=== PATIENT | female | born 1970 | race Caucasian/White ===

== ENCOUNTER 2020-10-29 13:08 | Outpatient (REF) | payer OTHER, SELFPAY ==
[2020-10-29 13:55] LABS: MANUAL DIFF FLAG NO
[2020-10-29 14:03] LABS: Basophils Percent Auto 0.4 % (0-2); Eosinophils Absolute Auto 0.1 X10*3/uL (0.0-0.4); Eosinophils Percent Auto 1.5 % (0-4); Hematocrit 39.9 % (37-47); Hemoglobin 12.5 g/dl (12.0-16.0); Imm Gran Abs Auto 0.01 X10*3/uL (0.00-0.03); Imm Gran Pct Auto 0.1 % (0.0-0.4); Lymphocytes Percent Auto 29.2 % (20-40); Mean Corpuscular HGB Conc 31.3 g/dl (31.0-35.0); Mean Corpuscular Hemoglobin 26.7 pg (27.0-33.0); Mean Corpuscular Volume 85.1 fL (80-98); Mean Platelet Volume 10.6 fL (9.4-12.3); Monocytes Absolute Auto 0.3 X10*3/uL (0.1-1.2); Monocytes Percent Auto 4.6 % (2-11); Neutrophils Absolute Auto 4.3 X10*3/uL (2.0-8.3); Neutrophils Percent Auto 64.2 % (45-73); Platelet Count 151 X10*3/uL (160-400); Red Blood Count 4.69 X10*6/uL (4.20-5.50); Red Cell Distribution Width 17.1 % (11.0-16.0); White Blood Count 6.7 X10*3/uL (4.8-10.8)
[2020-10-29 14:23] LABS: Alanine Aminotransferase 27 U/L (0-31); Albumin Level 4.2 g/dL (3.5-5.0); Alkaline Phosphatase 116 U/L (39-117); Anion Gap 15 (12-20); Aspartate Amino Transferase 35 U/L (5-31); Bilirubin Total 0.2 mg/dL (0.0-1.0); Blood Urea Nitrogen 7 mg/dL (9-16); Calcium 9.4 mg/dL (8.4-10.2); Carbon Dioxide 24 mmol/L (22-29); Chloride 105 mmol/L (96-108); Estimated Glomerular Filt Rate > 60; Glucose Random 102 mg/dL (60-115); Potassium 4.6 mmol/L (3.3-5.1); Sodium 139 mmol/L (135-145); Total Protein 7.8 g/dL (6.5-8.0)
== END 2020-10-29 13:09 | disposition home or self-care (01) ==
LOC: HO.HMGCLDS 13:08
PROVIDERS: PCP Internal Medicine; Visit Provider Internal Medicine
DX: Z01.818 Encounter for other preprocedural examination (principal); R00.0 Tachycardia, unspecified; R94.31 Abnormal electrocardiogram [ECG] [EKG]; R06.02 Shortness of breath; B35.4 Tinea corporis; K21.9 Gastro-esophageal reflux disease without esophagitis
CPT/HCPCS: 36415; 80053; 85025

== ENCOUNTER 2023-02-22 14:33 | Emergency (ER) | payer OTHER, SELFPAY ==
--- NOTE | ~2023-02-22 | CT_ITS ---
EXAMINATION: CT HEAD WITHOUT CONTRAST CLINICAL INFORMATION: Auditory and visual hallucinations. COMPARISON: None available. TECHNIQUE: Contiguous axial imaging was performed from the skull base to vertex without intravenous administration of contrast. This CT examination was performed using dose optimization techniques as appropriate, variously including the following: *Automated exposure control *Adjustment of mA and/or kV according to patient size (this includes techniques or standardized protocols for targeted exams where dose is matched to indication/reason for exam; i.e. extremities or head) *Use of iterative reconstruction technique DLP: 695 mGy-cm FINDINGS: The lateral, third and fourth ventricles are normally outlined. The cortical sulci and basal cisterns are normally outlined as well. There is no acute territorial defect, hemorrhage or midline shift. The extra-axial spaces are unremarkable. Calvarium: Intact. Maxillofacial sinuses and mastoids: Clear as visualized. CT/CT head/brain wo IV con IMPRESSION: No acute intracranial pathology.
--- NOTE | 2023-02-22 15:14 | ED_ITS ---
HPI - Psych General Chief Complaint: Psychiatric Symptoms Stated Complaint: Visual & Auditory Hallucinations Time Seen by Provider: 02/22/23 15:45 Source: patient Mode of arrival: ambulatory Limitations: no limitations History of Present Illness HPI Narrative: Patient comes to the emergency room complaining several weeks of visual hallucinations and auditory hallucinations. Patient states that she hears that people are saying her name or calling her. Patient states that she is also seeing people that should not be there. The auditory hallucinations got very bad today, said she heard voices coming through her phone without being on a phone call, patient [place]phone [place]. Patient admits to using marijuana, denies other drug use. Patient states she has history of anxiety, depression, PTSD but has never had hallucinations in the past. Related Data Home Medications Medication Instructions Recorded Confirmed bupropion HCl 300 mg 24 hr tablet, 300 mg PO DAILY 02/22/23 02/22/23 extended release escitalopram oxalate 20 mg tablet 20 mg PO DAILY 02/22/23 02/22/23 gabapentin 800 mg tablet 800 mg PO BID 02/22/23 02/22/23 omeprazole 20 mg capsule,delayed 20 mg PO DAILY 02/22/23 02/22/23 release prazosin 1 mg capsule 1 mg PO QID 02/22/23 02/22/23 Previous Rx's Medication Instructions Recorded Ventolin HFA 90 mcg/actuation 1 puff inhalation QID PRN 03/15/22 aerosol inhaler (albuterol sulfate) shortness of breath or wheezing #8 grams Allergies Allergy/AdvReac Type Severity Reaction Status Date / Time amoxicillin [From Augmentin] Allergy Unknown Rash Verified 08/17/22 06:41 clavulanic acid Allergy Unknown Rash Verified 08/17/22 06:41 [From Augmentin] codeine [CODEINE] Allergy Unknown Vomiting Verified 08/17/22 06:41 erythromycin base Allergy Unknown Unknown Verified 08/17/22 06:41 Codeine Phosphate Allergy Unknown unknown Uncoded 05/06/21 15:59 Codeine Sulfate Allergy Unknown unknown Uncoded 05/06/21 15:59 Review of Systems 2 Review of Systems: Constitutional : No Weight loss, No Fever, No Chills, No Night Sweats, No Fatigue, No Malaise ENT/Mouth : No Hearing loss, No Ear Pain, No Nasal Congestion, No Sinus Pain, No Hoarseness, No sore throat, No Rhinorrhea, No Swallowing Difficulty Eyes: No Eye Pain, No Swelling, No Redness, No Foreign Body, No Discharge, No Vision Changes Cardiovascular : No Chest Pain, No SOB, No Dyspnea on Exertion, No Orthopnea, No Edema, No Palpitations Respiratory : No Cough, No Sputum, No Wheezing, No Smoke Exposure, No Dyspnea Gastrointestinal : No Nausea, No Vomiting, No Diarrhea, No Constipation, No abdominal Pain, No Hematochezia, No Melena Genitourinary : no irregular bleeding, No Dysuria, No Urinary Frequency, No Hematuria, No Urinary Incontinence, No Urgency, No Flank Pain, No Urinary Flow Changes, No Hesitancy Musculoskeletal : No joint pain, No Myalgias, No Joint Swelling Skin : No Skin Lesions, No rash Neuro : No Weakness, No Numbness, No Paresthesias, No Loss of Consciousness, No Dizziness, No Headache Psych : No Anxiety/Panic, No Depression, denies SI or HI, admits to auditory and visual hallucinations for several weeks Heme/Lymph: No Bruising, No Bleeding,No Lymphadenopathy Endocrine : No Polyuria, No Polydipsia, No Temperature Intolerance [facility] Past Medical History Medical History (Updated 02/22/23 @ 19:29 by Keeley Julio MD) Anxiety and depression Marijuana use, continuous Asthma, moderate persistent Chronic hepatitis C Family History Family History Other Mental health disorder Substance use disorder Social History Social History Housing: Apartment Alcohol intake: former Year quit: 2006 Patient Tobacco Use Status: Former Tobacco user Tobacco use type: Cigarette Cigarettes Per Day: 2 Smoked in Last 30 Days: Yes e-Cigarette/Vaping Use: Never Used Use of substances other than those prescribed or required for medical reasons: Yes Substance Use Type: Other Advance Directives: No Advance Directives Information Provided: No Current occupational status: employed Cognitive needs: No Hearing needs: No Vision needs: Yes Physical Exam 2 Vital Signs: Vital Signs: Last Vital Signs Temp 98.4 F 02/22/23 16:00 Pulse 61 02/22/23 19:22 Resp 17 02/22/23 19:22 BP 129/70 02/22/23 19:22 Pulse Ox 96 02/22/23 19:22 O2 Del Method Room Air 02/22/23 19:22 BMI result Body Mass Index 26.9 Const: Other: Appearance: Alert. Oriented X3. No acute distress. Eyes: Pupils equal, round and reactive to light. ENT: Pharynx normal. Neck: Normal inspection. Neck supple. No lymph nodes noted. No crepitus CVS: Normal heart rate and rhythm. Pulses normal. Normal S1 and S2 Respiratory: No respiratory distress. Breath sounds normal. No Wheezing. No rales Abdomen: Soft and nontender. No rigidity. No distention. Skin: Skin warm and dry. Normal skin color. Normal skin turgor. Extremities: No lower extremity edema. No Lacerations. No Rash Neuro: Oriented X 3. No motor deficit. No sensory deficit. Moving all extremities. No slurred speech. CN 2 through 12 grossly intact Psych: calm, cooperative, normal affect, coherent Course Course Course Narrative: This is an RME: Additional HPI, ROS, PE not included below will be deferred to primary provider. This is a [id number], with a hx of PTSD, anxiety, asthma, GERD, marijuana use, presenting to the emergency department with a complaint of auditory and visual hallucinations. Pt states that she saw her brother across the street, and thought she saw her brother drove across the street but states that the brother lives in [place] so that is not possible. She also has been hearing things. She has no hx of auditory or visual hallucinations. She states that she threw her phone away in water cause it was talking to me . She went to [facility] in [place], and was called the next day to set up an appointment. She states that she drinks alcohol, but occasionally. She uses cocaine, heroin, crack. No SI/HI. The voices are never harmful, states that they tell her to sit or move. Plan: Labs, UA, drug screening Reevaluation(s) Reevaluation #1: Patient value aided by the care team and felt to be a safe discharge as she has good follow-up, lives with her father, and will undergo medication adjustment. Time: 22:39 Medications Administered Generic Name Dose Route Start Last Admin Trade Name Freq PRN Reason Stop Dose Admin Gabapentin 800 mg 02/22/23 21:15 02/22/23 21:46 Gabapentin 400 Mg Capsule PO 800 mg BID PATRICK Administration Medical Decision Making Medical Decision Making [facility] Narrative: -my interpretation of labs, hematology and chemistry unremarkable, urine toxicology positive for THC -my interpretation head CT, no intracranial bleed or obvious masses -patient medically cleared to be seen by behavioral health/care team Differential Diagnosis Differential Diagnoses: The differential diagnosis associated with the presentation includes (Polysubstance abuse, EtOH, schizophrenia) Admission/Observation Consideration of admission/observation: Escalation of care including admission/observation considered (Patient will remain under observation until seen by the care team) Lab Data [facility] Lab Attestation statement: I reviewed the patient's lab results. 02/22/23 17:03 02/22/23 17:03 Labs: Lab Results 02/22/23 02/22/23 Range/Units 16:26 17:03 WBC 8.6 (4.8-10.8) X10*3/uL RBC 5.11 (4.20-5.50) X10*6/uL Hgb 14.9 (12.0-16.0) g/dl Hct 45.4 (37.0-47.0) % MCV 88.8 (80.0-98.0) fL MCH 29.2 (27.0-33.0) pg MCHC 32.8 (31.0-35.0) g/dl RDW 14.0 (11.0-16.0) % Plt Count 227 (160-400) X10*3/uL MPV 10.2 (9.4-12.3) fL Immature Gran % (Auto) 0.2 (0.0-0.4) % Neut % (Auto) 46.9 (45-73) % Lymph % (Auto) 46.2 H (20-40) % [place] % (Auto) 5.1 (2-11) % Eos % (Auto) 1.2 (0-4) % Baso % (Auto) 0.4 (0-2) % Lymph # (Auto) 4.0 (1.2-4.9) X10*3/uL [place] # (Auto) 0.4 (0.1-1.2) X10*3/uL Eos # (Auto) 0.1 (0.0-0.4) X10*3/uL Baso # (Auto) 0.0 (0.0-0.2) X10*3/uL Abs Immat Gran (auto) 0.02 (0.00-0.03) X10*3/uL Absolute Neuts (auto) 4.0 (2.0-8.3) x10*3/uL Absolute Nucleated RBC 0.000 (0.0-0.012) X10*3/uL Nucleated RBC % (auto) 0.0 (0.0-0.2) /100WBC Sodium 140 (135-145) mmol/L Potassium 3.8 (3.3-5.1) mmol/L Chloride 104 (96-108) mmol/L Carbon Dioxide 27 (22-29) mmol/L Anion Gap 13 (12-20) BUN 11 (9-16) mg/dL Creatinine 0.81 (0.5-1.4) mg/dL Estim Creat Clear Calc 68.5 Estimated GFR > 60 Random Glucose 79 (60-115) mg/dL Calcium 9.5 (8.4-10.2) mg/dL Total Bilirubin 0.4 (0.0-1.0) mg/dL Direct Bilirubin 0.1 (0.0-0.5) mg/dL AST 23 (5-31) U/L ALT 24 (0-31) U/L Alkaline Phosphatase 98 (39-117) U/L Total Protein 7.6 (6.5-8.0) g/dL Albumin 4.5 (3.5-5.0) g/dL TSH 1.00 (0.32-4.0) uIU/mL Urine Color Yellow Urine Appearance Cloudy Urine pH 6.0 (5.0-9.0) Ur Specific [place] 1.020 (1.005-1.025) Urine Protein Negative (Neg-Trace) mg/dL Urine Glucose (UA) Negative (Negative) mg/dL Urine Ketones Negative (Negative) mg/dL Urine Blood Negative (Negative) Urine Nitrite Negative (Negative) Ur Leukocyte Esterase Trace H (Negative) Urine RBC 0-2 (0-2) /HPF Urine WBC 0-5 (0-5) /HPF Ur Squamous Epith Cells 11-20 (0-2) /HPF Urine Bacteria 1+ (None Seen) Hyaline Casts 0-2 (0-2) /LPF Urine Opiates Screen Not Detected (Not Detect) Urine Fentanyl Screen Not Detected (Not Detect) Ur Barbiturates Screen Not Detected (Not Detect) Ur Phencyclidine Scrn Not Detected (Not Detect) Ur Amphetamines Screen Not Detected (Not Detect) U Benzodiazepines Scrn Not Detected (Not Detect) Urine Cocaine Screen Not Detected (Not Detect) U Marijuana (THC) Screen POSITIVE H (Not Detect) Ethyl Alcohol < 10 mg/dL Independent Interpretation I performed an independent interpretation of an: CT Scan Radiology Impression Discussion of test interpretation with radiology: I have reviewed the radiologist's reading. Radiologist Impression: FINDINGS: The lateral, third and fourth ventricles are normally outlined. The cortical sulci and basal cisterns are normally outlined as well. There is no acute territorial defect, hemorrhage or midline shift. The extra-axial spaces are unremarkable. Calvarium: Intact. Maxillofacial sinuses and mastoids: Clear as visualized. CT/CT head/brain wo IV con IMPRESSION: No acute intracranial pathology. Critical Care Time Critical Care Time Critical Care Time: Yes Total Critical Care Time: 60 Attestation: I have personally provided critical care time. Time includes review of lab data, radiology results, discussion with consultants, and monitoring for potential decompensation. Intervention performed as documented. Discharge Plan Discharge Clinical Impression: Hallucinations Patient Disposition: Home, Self-Care Instructions: Psychiatric Hallucinations (ED) Additional Instructions: 1. Resume all home medications as prescribed. 2. Please follow-up with your therapist and psychiatrist in the morning for medication adjustment. Return to the ER for any worsening symptoms. Prescriptions: No Action albuterol sulfate [Ventolin HFA] 90 mcg/actuation HFA aerosol inhaler 1 puff inhalation QID PRN (Reason: shortness of breath or wheezing) Qty: 8 0RF gabapentin 800 mg tablet 800 mg PO BID omeprazole 20 mg capsule,delayed release(DR/EC) 20 mg PO DAILY escitalopram oxalate 20 mg tablet 20 mg PO DAILY bupropion HCl 300 mg tablet extended release 24 hr 300 mg PO DAILY prazosin 1 mg capsule 1 mg PO QID Referrals: Erwin Redmond MD [Primary Care Provider] - Interventions: [place]-Suicide Risk Severity Scale Last Done: 02/22/23 17:09
[2023-02-22 15:15] VITALS: BP 127/90; PULSE 85; RESP 18; TEMP 36.7; O2SAT 98; BMI 26.9
[2023-02-22 16:00] VITALS: BP 116/77; PULSE 61; RESP 16; TEMP 36.9; O2SAT 98
--- NOTE | 2023-02-22 17:02 | PC.NURSE ---
pt a&ox3. respirations even and unlabored. lung sounds clear bilaterally, denies chest pain and shortness of breath. pt abdomen soft non tender to touch, denies nausea vomiting and diarrhea. pt reports hearing voices and seeing things for the past 4 weeks. pt reports her vision is distorted and reports seeing her brother who is not there. pt reports that she is hearing good and bad voices. pt reports the bad voice is saying stupid pt reports the word stupid makes her her upset. pt did not state what the good voices were saying. pt denies si/hi and states the voices are not telling her to harm herself or others. pt calm and corporative at this time. pt changed over and has a 1:1 sitter at this time.
[2023-02-22 17:07] LABS: MANUAL DIFF FLAG NO
[2023-02-22 17:09] LABS: Basophils Percent Auto 0.4 % (0-2); Eosinophils Absolute Auto 0.1 X10*3/uL (0.0-0.4); Eosinophils Percent Auto 1.2 % (0-4); Hematocrit 45.4 % (37.0-47.0); Hemoglobin 14.9 g/dl (12.0-16.0); Imm Gran Abs Auto 0.02 X10*3/uL (0.00-0.03); Imm Gran Pct Auto 0.2 % (0.0-0.4); Lymphocytes Percent Auto 46.2 % (20-40); Mean Corpuscular HGB Conc 32.8 g/dl (31.0-35.0); Mean Corpuscular Hemoglobin 29.2 pg (27.0-33.0); Mean Corpuscular Volume 88.8 fL (80.0-98.0); Mean Platelet Volume 10.2 fL (9.4-12.3); Monocytes Absolute Auto 0.4 X10*3/uL (0.1-1.2); Monocytes Percent Auto 5.1 % (2-11); Neutrophils Percent Auto 46.9 % (45-73); Platelet Count 227 X10*3/uL (160-400); Red Blood Count 5.11 X10*6/uL (4.20-5.50); White Blood Count 8.6 X10*3/uL (4.8-10.8)
[2023-02-22 17:10] LABS: Appearance Urine Cloudy; Color Urine Yellow; Glucose Urine UA Negative (Negative); Leukocyte Esterase Urine Trace (Negative); Nitrite Urine Negative (Negative); UMIC TRIGGER UACC YES; Urine Blood Negative (Negative); Urine Ketones Negative (Negative); Urine Protein Negative (Neg-Trace)
--- NOTE | 2023-02-22 17:14 | PC.NURSE ---
pt reports being a previous user of opioids. pt currently on methadone and reports last dosing this morning.
[2023-02-22 17:16] LABS: Amphetamine Screen Urine Not Detected (Not Detect); Barbiturates, Urine Not Detected (Not Detect); Benzodiazepines Screen Urine Not Detected (Not Detect); Cannabinoid Screen Urine POSITIVE (Not Detect); Cocaine Screen Urine Not Detected (Not Detect); Fentanyl, urine Not Detected (Not Detect); Opiate Screen Urine Not Detected (Not Detect); Phencyclidine Screen Urine Not Detected (Not Detect)
[2023-02-22 17:25] LABS: Bacteria Urine 1+ (None Seen); Hyaline Casts Urine 0-2 /LPF (0-2); RBC Urine 0-2 /HPF (0-2); WBC Urine 0-5 /HPF (0-5)
[2023-02-22 17:28] LABS: Alanine Aminotransferase 24 U/L (0-31); Albumin Level 4.5 g/dL (3.5-5.0); Alkaline Phosphatase 98 U/L (39-117); Anion Gap 13 (12-20); Aspartate Amino Transferase 23 U/L (5-31); Bilirubin Direct 0.1 mg/dL (0.0-0.5); Bilirubin Total 0.4 mg/dL (0.0-1.0); Blood Urea Nitrogen 11 mg/dL (9-16); Calcium 9.5 mg/dL (8.4-10.2); Carbon Dioxide 27 mmol/L (22-29); Chloride 104 mmol/L (96-108); Creatinine Clr Calc Pharmacy 68.5; Estimated Glomerular Filt Rate > 60; Ethanol < 10 mg/dL; Glucose Random 79 mg/dL (60-115); Potassium 3.8 mmol/L (3.3-5.1); Sodium 140 mmol/L (135-145); Total Protein 7.6 g/dL (6.5-8.0)
[2023-02-22 19:22] VITALS: BP 129/70; PULSE 61; RESP 17; O2SAT 96
--- NOTE | 2023-02-22 21:06 | PHA.MEDREC ---
Pharmacy Consult ? Medication Reconciliation Pharmacy has reviewed the medication reconciliation completed by Boom.
[2023-02-22] MEDS: Gabapentin 400 MG CAPSULE 800 MG PO (21:46)
== END 2023-02-22 22:54 | disposition home or self-care (01) ==
PROVIDERS: Physician Assistant Medical; Emergency Provider Emergency Medicine; PCP Internal Medicine
DX: R44.0 Auditory hallucinations (principal); R44.1 Visual hallucinations; F41.8 Other specified anxiety disorders; F99 Mental disorder, not otherwise specified; F43.10 Post-traumatic stress disorder, unspecified; B18.2 Chronic viral hepatitis C; J45.909 Unspecified asthma, uncomplicated; F12.90 Cannabis use, unspecified, uncomplicated; Z87.891 Personal history of nicotine dependence; Z79.899 Other long term (current) drug therapy
CPT/HCPCS: 36415; 70450; 80048; 80076; 80307; 81001; 84443; 85025; 99284; 99285; S9485

== ENCOUNTER 2023-04-19 07:46 | Outpatient (REF) | payer OTHER, SELFPAY ==
--- NOTE | ~2023-04-19 | XR_ITS ---
EXAMINATION: XR SHOULDER, RIGHT CLINICAL INFORMATION: Right shoulder pain COMPARISON: Right shoulder x-ray on 03/30/2023 at [facility] TECHNIQUE: Single tangential view of the right shoulder. FINDINGS: BONES: Bony structures are intact. There is no focal bone destruction or periosteal reaction seen. JOINTS: Alignment of joints is normal. SOFT TISSUE: Soft tissue is normal. No radiopaque foreign body or abnormal air collection is seen. XR/XR shoulder RT 1V IMPRESSION: 1. Normal tangential view x-rays of right shoulder. No fracture or dislocation or signs of osteomyelitis are found. Follow-up MRI is recommended if symptoms persist. If MRI is not feasible, a CT scan could be considered.
== END 2023-04-19 07:47 | disposition home or self-care (01) ==
LOC: HO.HOSX 07:46
PROVIDERS: Visit Provider Orthopaedic Surgery
DX: M25.511 Pain in right shoulder (principal)
CPT/HCPCS: 73020; 99202

== ENCOUNTER 2023-04-19 11:35 | Outpatient (AMB) | payer OTHER, SELFPAY ==
[2023-04-19 11:49] VITALS: BMI 26.8
--- NOTE | 2023-04-19 11:49 | A.OFFVIS_ITS ---
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 The patient states that she injured her shoulder approximately 1 year ago while lifting heavy object. Since that time she has had difficulty lifting her right hand above shoulder height. She has had injections in the past which gave her minimal relief. She has also done physical therapy for 12 weeks over the last 6 months which aggravated her pain. She has tried Tylenol, ibuprofen and Robaxin which gave her minimal relief. The patient reports difficulty lifting her right hand above shoulder height. Allergies amoxicillin [From Augmentin] Allergy (Unknown, Verified 04/19/23 12:08) Rash clavulanic acid [From Augmentin] Allergy (Unknown, Verified 04/19/23 12:08) Rash codeine [CODEINE] Allergy (Unknown, Verified 04/19/23 12:08) Vomiting erythromycin base Allergy (Unknown, Verified 04/19/23 12:08) Unknown Codeine Phosphate Allergy (Unknown, Uncoded 04/19/23 12:08) unknown Codeine Sulfate Allergy (Unknown, Uncoded 04/19/23 12:08) unknown [facility] Medical History (Updated 04/19/23 @ 07:46 by Bradley Mijares MD) Anxiety and depression Marijuana use, continuous Asthma, moderate persistent Chronic hepatitis C Family History Other Mental health disorder Substance use disorder Social History (Updated 04/19/23 @ 11:55 by Mary Rivera [facility] Housing: Apartment Alcohol intake: former Year quit: 2006 Patient Tobacco Use Status: Former Tobacco user Tobacco use type: Cigarette Cigarettes Per Day: 2 e-Cigarette/Vaping Use: Never Used Substance Use Type: Other Current occupational status: employed 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, 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 Cognitive needs: No Hearing needs: No Vision needs: Yes Physical Exam Vital Signs: BMI result Body Mass Index 26.8 Const Other: Well-nourished well-developed very friendly female awake alert and oriented x3 in no acute distress Extrem Other: Bilateral upper extremity examination shows good capillary refill, no skin lesions noted, normal sensation light touch Right shoulder examination shows decreased range of motion when compared to her left shoulder, 4+ out of 5 strength with supraspinatus testing, positive impingement signs, tenderness over her acromioclavicular joint, no instability Results Reviewed Results Reviewed: X-rays of the patient's right shoulder show severe acromioclavicular joint narrowing, a type 2 acromion, no acute bony abnormalities Assessment & Plan Assessment & Plan (1) Right shoulder pain: Code(s): M25.511 - Pain in right shoulder Plan: Ms. Rodriguez presents with right shoulder pain and weakness due to impingement syndrome, acromioclavicular joint arthritis and possible rotator cuff tearing. Thus, I will send the patient for an MRI of her right shoulder to further evaluate the status of her rotator cuff tendons. I will see her back once the MRI is completed to discuss the findings and treatment options. Feel free to call me at any time should questions regarding her orthopedic management arise. Thank you very much for asking me to see this very friendly patient. I spent 22 minutes in reviewing the patient's records and imaging studies, seeing the patient and documenting in the medical record. Orders: Orders MR shoulder RT wo con Today M25.511 - Pain in right shoulder Coding Level of Care Code New Pt Level 2 (64000) Diagnoses Right shoulder pain M25.511
== END 2023-04-19 12:28 | disposition home or self-care (01) ==
LOC: HO.HOS 11:35
PROVIDERS: PCP Internal Medicine; Visit Provider Orthopaedic Surgery
DX: M25.511 Pain in right shoulder (principal)
CPT/HCPCS: 99202

== ENCOUNTER 2023-05-23 18:00 | Outpatient (REF) | payer OTHER, SELFPAY ==
--- NOTE | ~2023-05-23 | MR_ITS ---
EXAMINATION: MR SHOULDER WITHOUT CONTRAST, RIGHT CLINICAL INFORMATION: Right shoulder pain. COMPARISON: Right shoulder radiographs dated 04/19/2023. TECHNIQUE: MRI of the shoulder without contrast was performed on a high-field scanner. FINDINGS: ROTATOR CUFF: Complete, full-thickness tears of the supraspinatus and infraspinatus tendons with the torn tendon fibers retracted to the glenohumeral articulation. Overall tearing measures up to 4.4 x 4.1 cm (AP by ML). Prominent infraspinatus and more mild supraspinatus muscle strains. Mild subscapularis tendinosis. No muscle atrophy or fatty infiltration. BICEPS: Intact. CORACOACROMIAL ARCH: The undersurface of the acromion is flat with subacromial spurring. Mild acromioclavicular osteoarthritis. LABRUM/CAPSULE: No labral tear. Intact inferior joint capsule. GLENOHUMERAL JOINT/MARROW: Degenerative cystic change within the greater tuberosity with mild marrow edema. Grossly intact articular cartilage. Moderate joint effusion with mild synovitis. MR/MR shoulder RT wo con IMPRESSION: 1. Complete, full-thickness tears of the supraspinatus and infraspinatus tendons with the torn tendon fibers retracted to the glenohumeral articulation. Prominent infraspinatus and more mild supraspinatus muscle strains. Mild subscapularis tendinosis. 2. Mild acromioclavicular osteoarthritis with subacromial spurring. 3. Moderate glenohumeral joint effusion with mild synovitis.
== END 2023-05-23 18:01 | disposition home or self-care (01) ==
LOC: HO.MRI 18:00
PROVIDERS: PCP Internal Medicine; Visit Provider Orthopaedic Surgery
DX: M25.511 Pain in right shoulder (principal)
CPT/HCPCS: 73221

== ENCOUNTER 2023-06-17 12:06 | Outpatient (AMB) | payer OTHER, SELFPAY ==
--- NOTE | 2023-06-17 12:07 | MHC.OFFVIS ---
Intake Intake Visit Reasons: OV-Right Shoulder-discuss surgery Intake Note: Kirstie is a 52 year old 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 female who presents today to discuss surgical intervention of her right shoulder. She was last seen with Dr. Mijares who referred her to [place]. Allergies amoxicillin [From Augmentin] Allergy (Unknown, Verified 04/19/23 12:08) Rash clavulanic acid [From Augmentin] Allergy (Unknown, Verified 04/19/23 12:08) Rash codeine [CODEINE] Allergy (Unknown, Verified 04/19/23 12:08) Vomiting erythromycin base Allergy (Unknown, Verified 04/19/23 12:08) Unknown Codeine Phosphate Allergy (Unknown, Uncoded 04/19/23 12:08) unknown Codeine Sulfate Allergy (Unknown, Uncoded 04/19/23 12:08) unknown HPI OV-Right Shoulder-discuss surgery HPI Details Kirstie is a 52 year old woman who presents for an MRI review of her right shoulder pain. She complains of pain with daily activity, along with limited ROM. She says she cannot lift her hand above shoulder height at times, and she has difficulty with lifting objects as her arm feels weak. She reports injuring her shoulder ~one year ago aftger lifting. She found no relief from NSAIDs or injections, and PT made her pain worse. She would like to discuss surgery. [facility] Medical History (Updated 06/19/23 @ 09:30 by Juan David Sanchez MD) Anxiety and depression Marijuana use, continuous Asthma, moderate persistent Chronic hepatitis C Family History Other Mental health disorder Substance use disorder Social History (Updated 04/19/23 @ 11:55 by Mary Rivera [facility]) Housing: Apartment Alcohol intake: former Year quit: 2006 Patient Tobacco Use Status: Former Tobacco user Tobacco use type: Cigarette Cigarettes Per Day: 2 e-Cigarette/Vaping Use: Never Used Substance Use Type: Other Current occupational status: employed 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, 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 Cognitive needs: No Hearing needs: No Vision needs: Yes Review of Systems Const All systems reviewed & are unremarkable except as noted in HPI and below Physical Exam Const General: no acute distress, alert and awake Orientation/consciousness: patient oriented x3 HEENT Head: Yes normocephalic and Yes atraumatic Eyes EOM: EOMs intact bilaterally Resp Effort & Inspection: normal respiratory effort and able to speak in complete sentences Cardio Jugular venous distension: no JVD Skin General skin exam: turgor normal Rashes: no rashes Neuro General: patient oriented x3 Extrem Other: 30/90 (+recruitment), 120, L5 4/5 ec neg lag neg drop arm/HB Neg lift off Psych Appearance: grossly normal Affect: normal affect Attitude: cooperative Results Reviewed Results Reviewed: 1. Complete, full-thickness tears of the supraspinatus and infraspinatus tendons with the torn tendon fibers retracted to the glenohumeral articulation. Prominent infraspinatus and more mild supraspinatus muscle strains. Mild subscapularis tendinosis. 2. Mild acromioclavicular osteoarthritis with subacromial spurring. 3. Moderate glenohumeral joint effusion with mild synovitis. Assessment & Plan Assessment & Plan (1) Rotator cuff tear, right: Code(s): M75.101 - Unspecified rotator cuff tear or rupture of right shoulder, not specified as traumatic Plan: This is a 52 yo F with a full thickness and retracted tear of the supraspinatus on the right shoulder. The infra and subscap are intact. I recommend surgery. I discussed with her the MRI findings which are coincerning. I explained that with the extent of retraction that primary repair may not be possible. I discussed the possible use of a bioinductive graft but we agreed that if it is unrepairable I will not reconstruct the capsule and that we will discuss other interventions at that time. She is young and I think primary repair is possible. I explained the surgery and the risks, benefits and alternatives including, but not limited to, stiffness, pain, infection, weakness, need for further surgery and extended recovery. I answered all her questions. Plan Scribed for Juan David Sanchez MD by Nicolas Chavez, medical imaging technician, on 06/17/23 at 12:21 PM, EST. Coding Level of Care Code Est Pt Level 4 (77417) Diagnoses Rotator cuff tear, right M75.101
== END 2023-06-17 13:02 | disposition home or self-care (01) ==
PROVIDERS: PCP Internal Medicine; Visit Provider Orthopaedic Surgery
DX: M75.101 Unspecified rotator cuff tear or rupture of right shoulder, not specified as traumatic (principal)
CPT/HCPCS: 99214

== ENCOUNTER → 2023-06-17 12:06 | Outpatient (BNVA) | payer OTHER, SELFPAY | PROVIDERS: PCP Internal Medicine; Visit Provider Orthopaedic Surgery | DX: M75.101 Unspecified rotator cuff tear or rupture of right shoulder, not specified as traumatic (principal) | CPT/HCPCS: 99212 ==

== ENCOUNTER 2023-07-05 07:29 | Day surgery (SDC) | payer OTHER, SELFPAY ==
[2023-07-01 07:42] VITALS: BMI 36.0
[2023-07-05] VITALS (9 sets, daily range): BP systolic 104–120; BP diastolic 35–77; PULSE 67–86; RESP 15–18; TEMP 36.6–37; O2SAT 93–97; BMI 31.1
[2023-07-05 09:12] LABS: UPreg QC Valid YES; Urine Pregnancy NEGATIVE (NEGATIVE)
--- NOTE | 2023-07-05 09:39 | HO.ANESPROP2 ---
HPI - Anesthesia Eval Consult details Narrative: 52 F p/f rotator cuff repair IVDU hx heroine; off since 2019; now on methadone Well controlled asthma PMFSH Active Problems Active Problems: All Active Problems (Updated 06/19/23 @ 09:30 by Juan David Sanchez MD) Rotator cuff tear, right (Acute) Right shoulder pain (Acute) Chronic hepatitis C (Acute) Asthma, moderate persistent (Acute) Marijuana use, continuous (Acute) Psychiatric illness (Acute) Allergic rhinitis (Acute) Obesity due to excess calories (Acute) Intermittent asthma (Acute) Tobacco use disorder (Acute) Tinea corporis (Acute) Chronic GERD (Acute) Shortness of breath (Acute) Pre-op evaluation (Acute) Tachycardia (Acute) Abnormal EKG (Acute) Elevated alpha fetoprotein (Acute) Past Medical History Medical History Anxiety and depression Marijuana use, continuous Asthma, moderate persistent Chronic hepatitis C Family History Family History Other Mental health disorder Substance use disorder Family history of problems with anesthesia: No Surgical History History of Problems with Anesthesia: No Social History Social History Housing: Apartment Alcohol intake: former Year quit: 2006 Patient Tobacco Use Status: Current everyday Tobacco user Tobacco use type: Cigarette Cigarettes Per Day: 3 e-Cigarette/Vaping Use: Never Used Substance Use Type: Other Substance Use Frequency: Daily Have you been hit, kicked, punched, or otherwise hurt by someone within the past year? 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 Cognitive needs: No Hearing needs: No Vision needs: Yes Meds Allergies Allergy/AdvReac Type Severity Reaction Status Date / Time amoxicillin [From Augmentin] Allergy Unknown Rash Verified 04/19/23 12:08 clavulanic acid Allergy Unknown Rash Verified 04/19/23 12:08 [From Augmentin] codeine [CODEINE] Allergy Unknown Vomiting Verified 04/19/23 12:08 erythromycin base Allergy Unknown Unknown Verified 04/19/23 12:08 Codeine Phosphate Allergy Unknown unknown Uncoded 04/19/23 12:08 Codeine Sulfate Allergy Unknown unknown Uncoded 04/19/23 12:08 Home Medications Medication Instructions Recorded Confirmed Last Taken Type bupropion HCl 300 mg 24 hr tablet, 300 mg PO DAILY 02/22/23 02/22/23 Unknown History extended release escitalopram oxalate 20 mg tablet 20 mg PO DAILY 02/22/23 02/22/23 Unknown History gabapentin 800 mg tablet 800 mg PO BID 02/22/23 02/22/23 Unknown History omeprazole 20 mg capsule,delayed 20 mg PO DAILY 02/22/23 02/22/23 Unknown History release prazosin 1 mg capsule 1 mg PO QID 02/22/23 02/22/23 Unknown History aripiprazole 5 mg tablet 5 mg PO DAILY PRN 04/19/23 Unknown History melatonin 5 mg tablet 5 mg PO BEDTIME 04/19/23 Unknown History Exam Height,Weight and Vital Signs: Height 5 ft 2 in Weight 170 lb 0.009 oz Last Vital Signs Temp 97.9 F 07/05/23 08:21 Pulse 67 07/05/23 08:21 Resp 18 07/05/23 08:21 BP 104/68 07/05/23 08:21 Pulse Ox 94 07/05/23 08:21 O2 Del Method Room Air 07/05/23 08:21 Pertinent Lab Results Pertinent Lab Results: Laboratory Tests 07/05/23 08:45 Urine Test NEGATIVE Airway Mallampati Class: II TM Dist: >3cm Neck ROM: Full Denture: Lower Loose/Missing/Broken Teeth: Yes Assessment and Plan Assessment Anesthesia Assessment: Anesthesia Plan Discussed and Chart Reviewed Final Anesthetic Review Family History of Problems with Anesthesia: No History of Problems with Anesthesia: No NPO: Yes ASA Class: III Final Preanesthetic Review: No Changes in Pt Med Stat, Meds/Allgs Chart Reviewed, Consent Obtained/Reviewed and Anes Risks/Benef Reviewed Patient Risk: Intermediate Procedure Risk: Low Anesthetic Plan Anesthetic Plan: GA and Regional Block Disposition: Standard PACU
--- NOTE | 2023-07-05 09:44 | MHC.SHP ---
Pre-Procedural Eval Section A - 24 Hr Update-Section A only Date of Service: 07/05/23 Section B - Complete if H&P > 30 days Chief Complaint: Unspecified rotator cuff tear or rupture of right Details of Present Illness: see HPI Relevant Family History (Specify if Yes): No Relevant Social History: None Present Medications: see Short Stay Collaborative assessment Medical History: No relevant PMH History of Previous Operations: No relevant previous surgery Allergies: Allergies Allergy/AdvReac Type Severity Reaction Status Date / Time amoxicillin [From Augmentin] Allergy Unknown Rash Verified 04/19/23 12:08 clavulanic acid Allergy Unknown Rash Verified 04/19/23 12:08 [From Augmentin] codeine [CODEINE] Allergy Unknown Vomiting Verified 04/19/23 12:08 erythromycin base Allergy Unknown Unknown Verified 04/19/23 12:08 Codeine Phosphate Allergy Unknown unknown Uncoded 04/19/23 12:08 Codeine Sulfate Allergy Unknown unknown Uncoded 04/19/23 12:08 Review of Systems Sugical H&P ROS: Negative: Constitution, Cardiovascular, Respiratory, Neurological, Psychiatric, Hem-Onc, Allergic/Immunologic, Gastrointestinal, Genitourinary, Musculoskeletal, Integumentary, Endocrine and Eyes/Ears/Nose/Throat Exam Surgical H&P Exam: Normal: HEENT, Normal: Heart, Normal: Lungs, Normal: Abdomen, Normal: Skin and Normal: Neurological and Not Evaluated: Extremities (weakness with EC testing) Plan Diagnosis/Plan: Unchanged I have reviewed the history and physical and performed a pertinent physical examination on my patient. No changes have occurred unless specified. Right rotator cuff tear Time Spent With Patient Time: Total time managing care of this patient today ____ minutes.
--- NOTE | 2023-07-05 12:07 | P.BOP_ITS ---
Brief Operative Note Date of Service: 07/05/23 Pre-op diagnosis: Right RTC tear Post-op diagnosis: same Procedure: Right RTC repair, SAD and biceps tenotomy Implants: [employer] Helacoil x 4 Surgeon: Juan David Sanchez MD Anesthesia: GETA and regional Was an Janitorial Supervisor used for this Procedure?: No Janitorial Supervisor: Radha Delaney Estimated blood loss (mL): 20 IV fluids (mL): 1,200 Pathology: none sent Condition: stable Disposition: PACU
--- NOTE | 2023-07-06 16:08 | P.OP_ITS ---
Operative Note Operative Note Date of Service: 07/05/23 Narrative: Right RTC tear Post-op diagnosis: same Procedure: Right RTC repair, SAD and biceps tenotomy Implants: [employer]hew Helacoil x 4 Surgeon: Juan David Sanchez MD Anesthesia: GETA and regional Was an Bobbin Disker used for this Procedure?: No Bobbin Disker: Radha Delaney Estimated blood loss (mL): 20 IV fluids (mL): 1,200 Pathology: none sent Condition: stable Disposition: PACU Procedure in detail: Patient was brought to the operating room and placed the the beach chair position. All bony prominences were well padded and the limb was prepped and draped in standard sterile fashion. A time out was called to identify proper site, proper procedure and proper surgeon. IV antibiotics per weight were administered. I began by making a posterolateral stab incision with a 15 blade. A blunt trochar was placed into the glenohumeral joint and I insufflated the joint with saline and a 30 degree arthroscope was placed. I established an outside- in anterior portal just distal to the biceps tendon. I then began my inspection of the glenohumeral joint. There was a large degenerative SLAP tear at the biceps anchor. There were minimal cartilage changes at the inferior glenoid without humeral head changes. There was a full thickness undersurface RTC tear. The subcapularis was intact. I debrided the loose cartilage of the glenoid and the degenerative labral tearing and performed a biceps tenotomy. I then removed the trochar and entered the subacromial space. A direct lateral portal was then established and I performed a bursectomy. The cuff was then examined. There was a full thickness tear of the supraspinatus without retraction. The tear was mobile. I placed two medial row double loaded anchors after using a tap just adjacent to the articular cartilage and then brought the suture limbs ( 8) through the medial cuff. I then debrided the bare area down to bleeding bone and, using a cross bridge configuration, brought 4 limbs to each of two lateral 5.0 anchors. This re-approximated the cuff anatomy anatomically. I performed a 5 mm subacromial decompression with a oval arnulfo. Once I was satisfied with the repair and the decompression final images were captured and I removed all instrumentation. Portals were closed with nylon. Patient was placed in an abduction sling, extubated and brought to the recovery room in stable condition. There were no known complications.
== END 2023-07-05 14:24 | disposition home or self-care (01) ==
LOC: HO.SSS 07:31
PROVIDERS: Anesthesiology; PCP Internal Medicine; Visit Provider Orthopaedic Surgery
PROC: (CPT 29827; principal; 2023-07-05 09:40)
DX: M75.101 Unspecified rotator cuff tear or rupture of right shoulder, not specified as traumatic (principal); M25.411 Effusion, right shoulder; M65.811 Other synovitis and tenosynovitis, right shoulder; J45.40 Moderate persistent asthma, uncomplicated; B18.2 Chronic viral hepatitis C; F41.8 Other specified anxiety disorders; Z88.1 Allergy status to other antibiotic agents; Z88.5 Allergy status to narcotic agent; F12.90 Cannabis use, unspecified, uncomplicated; F17.210 Nicotine dependence, cigarettes, uncomplicated
CPT/HCPCS: 29827; 29826; 29822; 81025; C1713; J0171; J0690; J1100; J2250; J2371; J2405; J2704; J2795; J3010

== ENCOUNTER → 2023-07-05 07:29 | Outpatient (BNV) | payer OTHER, SELFPAY | PROVIDERS: PCP Internal Medicine; Visit Provider Orthopaedic Surgery | DX: S46.011A Strain of muscle(s) and tendon(s) of the rotator cuff of right shoulder, initial encounter (principal); S43.431A Superior glenoid labrum lesion of right shoulder, initial encounter | CPT/HCPCS: 29827 ==

== ENCOUNTER 2023-07-12 12:28 | Outpatient (AMB) | payer OTHER, SELFPAY ==
--- NOTE | 2023-07-12 12:30 | A.OFFVIS_ITS ---
Intake Vital Signs 07/12/23 12:33 Height 5 ft Weight 170 lb BMI 33.2 Handedness Right Intake Visit Reasons: PO-Rt RTC Repair 07/06/23 NE Intake Note: Kirstie is a 52 year old 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 female who presents today for a post op appointment s/p right RTC repair 07/06/23 NE. Patient reports having discomfort, however she has a exercise bike that she tried to use carefully but she felt a sharp pain on her right shoulder. Allergies amoxicillin [From Augmentin] Allergy (Unknown, Verified 07/12/23 12:33) Rash clavulanic acid [From Augmentin] Allergy (Unknown, Verified 07/12/23 12:33) Rash codeine [CODEINE] Allergy (Unknown, Verified 07/12/23 12:33) Vomiting erythromycin base Allergy (Unknown, Verified 07/12/23 12:33) Unknown Codeine Phosphate Allergy (Unknown, Uncoded 04/19/23 12:08) unknown Codeine Sulfate Allergy (Unknown, Uncoded 04/19/23 12:08) unknown HPI PO-Rt RTC Repair 07/06/23 NE HPI Details 52-year-old female who presents in the [facility] today 1 week status post right shoulder rotator cuff repair with SAD and bicep tenotomy, which was performed on 07/05/[address] Sanchez. The patient reports having discomfort in the right shoulder. She states she has an exercise bike that she tried to use carefully, but she felt a sharp pain on the right shoulder. 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 Sutures intact. No surrounding erythema or drainage. No signs of infection. Forward flexion and abduction to 45 degrees. External rotation to neutral. NVI. Assessment & Plan Assessment & Plan (1) Rotator cuff tear, right: Comment: Right rotator cuff repair 07/05/2023 Dr. Juan David Sanchez. Code(s): M75.101 - Unspecified rotator cuff tear or rupture of right shoulder, not specified as traumatic Plan Ms. Rodriguez is a 52-year-old female who presents in the office today 1 week status post right shoulder rotator cuff repair with SAD and bicep tenotomy, which was performed on 07/05/[address] Sanchez. The patient reports having discomfort in the right shoulder. She states she has an exercise bike that she tried to use carefully, but she felt a sharp pain on the right shoulder. Sutures were removed and steri-stripes were applied. The patient was instructed she will remain in the sling at all time until she is 6 weeks. At this time she does not have a physical therapy appointment scheduled. The office has reached out the physical therapy office her to get her scheduled as soon as possible. Follow up will be in 4 weeks, or sooner if needed. Orders: Orders PT Evaluation and Treatment Today M75.101 - Unspecified rotator cuff tear or rupture of right shoulder, not specified as traumatic Patient Instructions: Scribed by Rhonda Gomez director global medical affairs, for Brigette Og PA-C on 07/12/2023 at 12:29 pm, EST. Coding Level of Care Code Global (55267) Diagnoses Rotator cuff tear, right M75.101
[2023-07-12 12:33] VITALS: BMI 33.2
== END 2023-07-12 13:36 | disposition home or self-care (01) ==
PROVIDERS: PCP Internal Medicine; Visit Provider Physician Assistant
DX: M75.101 Unspecified rotator cuff tear or rupture of right shoulder, not specified as traumatic (principal)
CPT/HCPCS: 99024

== ENCOUNTER → 2023-07-12 12:28 | Outpatient (BNVA) | payer OTHER, SELFPAY | PROVIDERS: PCP Internal Medicine; Visit Provider Physician Assistant | DX: Z47.89 Encounter for other orthopedic aftercare (principal); M75.101 Unspecified rotator cuff tear or rupture of right shoulder, not specified as traumatic | CPT/HCPCS: 99212 ==

== ENCOUNTER 2023-07-20 08:46 | Outpatient (AMB) | payer OTHER, SELFPAY ==
--- NOTE | 2023-07-20 08:51 | MHC.PC.OV ---
Vital Signs 07/20/23 08:53 Height 5 ft Weight 175 lb 2 oz BMI 34.2 BP 124/80 Blood Pressure Location Lt brachial Position Sitting Pulse 89 Pulse Source Pulse Oximeter Pulse Oximetry (%) 95 Oxygen Delivery Method Room Air Intake Visit Reasons: PE Allergies amoxicillin [From Augmentin] Allergy (Unknown, Verified 07/20/23 08:53) Rash clavulanic acid [From Augmentin] Allergy (Unknown, Verified 07/20/23 08:53) Rash codeine [CODEINE] Allergy (Unknown, Verified 07/20/23 08:53) Vomiting erythromycin base Allergy (Unknown, Verified 07/20/23 08:53) Unknown Codeine Phosphate Allergy (Unknown, Uncoded 04/19/23 12:08) unknown Codeine Sulfate Allergy (Unknown, Uncoded 04/19/23 12:08) unknown Medication List - Last Reconciled 07/20/23 by Erwin Redmond MD acetaminophen 650 mg (2 x 325 mg) PO Q6H PRN 30 days aripiprazole 5 mg PO DAILY PRN bupropion HCl 300 mg PO DAILY escitalopram oxalate 20 mg PO DAILY gabapentin 800 mg PO BID melatonin 5 mg PO BEDTIME omeprazole 20 mg PO DAILY prazosin 1 mg PO QID Ventolin HFA 90 mcg/actuation (albuterol sulfate) 1 puff inhalation QID PRN 30 days NS Tobacco use date assessed: 07/20/23 Dental Screening Dental Screen Date: 07/20/23 Did you have a dental visit in the last 12 months?: Yes Did you have a dental problem in the last 6 months where you did not have access to dental care?: No Was dental information given to patient?: Patient has dentist HPI PE HPI Details Patient is a 52-year-old female came in today for physical exam Last time she was seen was in 2021 Patient have psychiatric illness with hallucinations auditory, she is on psychiatric medications through Psychiatry Only medication through this office are Omeprazole 20 mg once a day Albuterol inhaler only as needed And nystatin powder for tenia corporis that is usually happens in summer Labs were done February of last year, reviewed Patient agree to have colonoscopy, referral placed Due for mammogram, order placed Pap smear [facility] Patient recently had right shoulder rotator cuff surgery by Dr. 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 1. Little interest or pleasure in doing things: several days 2. Feeling down, depressed, or hopeless: several days 3. Trouble falling or staying asleep, or sleeping too much: more than half the days 4. Feeling tired or having little energy: more than half the days 5. Poor appetite or overeating: more than half the days 6. Feeling bad about yourself - or that you are a failure or have let yourself or your family down: several days 7. Trouble concentrating on things, such as reading the newspaper or watching television: several days 8. Moving or speaking so slowly that other people could have noticed. Or the opposite - being so fidgety or restless that you have been moving around a lot more than usual: not at all 9. Thoughts that you would be better off or of hurting yourself in some way: not at all Total score: 10 Depression Screening Interpretation: Positive Depression Screening Follow-up: Existing condition and In treatment Depression Screening Done: Yes 33514 - PHQ-9 Billing: Yes Source: Developed by Drs. Hossein Hartmann, Agnieszka Valdez, Drake Nolan and colleagues, with an educational shruthi from [employer]. Thrive Questionnaire Date Thrive assessed: 07/20/23 I am a: Patient What is your living situation today?: I have a steady place to live Within the past 12 months, did the food you bought not last and you didn't have the money to get more?: Never true Within the past 12 months, did you worry whether your food would run out before you got money to buy more?: Never true Do you have trouble paying for medicines?: No Do you have trouble getting transportation to medical appointments?: No Do you have trouble paying your heating and electricity bill?: No Do you have trouble taking care of your child, family member or friend?: No Do you have trouble with day-to-day activities such as bathing, preparing meals, shopping, managing finances, etc.?: No Are you currently unemployed and looking for a job?: No Are you interested in more education?: No Please select the resources that you would like help with: None Currently or been in a relationship where the following occur: no concerns reported THRIVE Score: 0 AUDIT C Alcohol Use Questionnaire (AUDIT-C) 1. How often do you have a drink containing alcohol?: Never 3. How often do you have six or more drinks on one occasion?: Never Total Score: 0 Score Reviewed/Action Taken: Yes FREEMAN-7 AMB Questionnaire FREEMAN-7 Date FREEMAN - 7 assessed: 07/20/23 Feeling nervous, anxious, or on edge: 2 = More than half the days Not being able to stop or control worryin = Several days Worrying too much about different things: 1 = Several days Trouble relaxin = Several days Being so restless that it is hard to sit still: 1 = Several days Becoming easily annoyed or irritable: 2 = More than half the days Feeling afraid as if something awful might happen: 1 = Several days Total FREEMAN-7 score (0-4 normal; 5-9 mild; 10-14 moderate; 15-21 severe): 9 Source: Developed by Drs. Hossein Hartmann, Agnieszka Valdez, Drake Nolan and colleagues, with an educational shruthi from [employer]. FREEMAN-7 Assessment Billing FREEMAN-7 Assessment Tool: FREEMAN-7 Assessment 87575 (In treatment) Review of Systems Const Denies chills, Denies fever(s) and Denies headache(s) Eyes Denies blurry vision ENT Denies headache(s), Denies nasal discharge, Denies nasal obstruction, Denies odynophagia and Denies sinus pain Card Denies chest pain at rest and Denies chest pain with activity Resp Denies cough and Denies hemoptysis GI Denies diarrhea, Denies odynophagia, Denies vomiting and Denies hematemesis Reports as per HPI Musc Denies abnormal gait Skin/Breast Reports as per HPI Neuro Denies Neuro-related abnormal movements, Denies Abnormal speech present, Denies abnormal gait, Denies headache(s) and Denies Sensory deficit (Neuro) Psych Denies mood swings and Denies paranoia Endo Reports as per HPI Alan/Lymph Reports as per HPI Aller/Immun Reports as per HPI Physical exam (Primary Care) Vital Signs: Last Vital Signs Pulse 89 07/20/23 08:53 BP 124/80 07/20/23 08:53 Pulse Ox 95 07/20/23 08:53 Oxygen Delivery Method Room Air 07/20/23 08:53 BMI result Body Mass Index 34.2 Tobacco/Smoking Status: Tobacco use Status Tobacco use date assessed 07/20/23 07/20/23 08:58 Patient Tobacco Use Status Current everyday Tobacco 07/20/23 08:51 Tobacco use type Cigarette 07/20/23 08:51 e-Cigarette/Vaping Use Never Used 07/20/23 08:51 PHQ-9: PHQ-9 Score PHQ-9: Total score 10 07/20/23 09:17 Depression Screening Interpretation: Positive Depression Screening Follow-up: Existing condition and In treatment Thrive Assessment: Date of Thrive Assessment Date Thrive assessed 07/20/23 07/20/23 09:05 Currently or been in a relationship where the following occur: no concerns reported Const General: cooperative, comfortable and no acute distress Orientation/consciousness: patient oriented x3 HENMT Head: Yes normocephalic and Yes atraumatic Eyes General: appearance normal, both eyes and all related structures Pupils: Equal, round and reactive pupils present EOM: EOMs intact bilaterally Neck Neck: Yes supple and No lymphadenopathy Thyroid: Thyroid normal Lymphatic: no lymphadenopathy noted Resp Effort & Inspection: normal respiratory effort and able to speak in complete sentences Auscultation: clear to auscultation bilaterally Cardio Heart sounds: S1 normal heart sound present and S2 normal heart sound present GI Palpation (GI): Soft to palpation and nontender Auscultation: normal bowel sounds General: Yes no CVA tenderness Back/Spine/Pelvis Back: no CVA tenderness Skin General skin exam: elasticity normal and turgor normal Neuro General: patient oriented x3 and gait normal Cranial nerves: Yes Equal, round and reactive pupils present Speech: No Abnormal speech present Sensory Exam: No Sensory deficit (Neuro) Coordination: tandem gait normal and Romberg test negative Extrem General: No edema Assessment and Plan Assessment & Plan (1) Encounter for general adult medical examination with abnormal findings: Code(s): Z00.01 - Encounter for general adult medical examination with abnormal findings (2) Major depressive disorder, severe: Code(s): F32.2 - Major depressive disorder, single episode, severe without psychotic features (3) Marijuana dependence: Code(s): F12.20 - Cannabis dependence, uncomplicated (4) Severe anxiety: Code(s): F41.9 - Anxiety disorder, unspecified (5) Auditory hallucinations: Code(s): R44.0 - Auditory hallucinations (6) Intermittent asthma: Code(s): J45.20 - Mild intermittent asthma, uncomplicated Qualifiers: Asthma severity: mild Asthma complication type: uncomplicated Qualified Code(s): J45.20 - Mild intermittent asthma, uncomplicated (7) Obesity due to excess calories: Code(s): E66.09 - Other obesity due to excess calories Qualifiers: Obesity classification: adult class 1 (BMI 30 - 34.9) Serious obesity comorbidity presence: without serious comorbidity Body mass index: BMI 34.0-34.9 Qualified Code(s): E66.09 - Other obesity due to excess calories; Z68.34 - Body mass index [BMI] 34.0-34.9, adult (8) Tinea corporis: Code(s): B35.4 - Tinea corporis (9) Chronic GERD: Code(s): K21.9 - Gastro-esophageal reflux disease without esophagitis (10) Colon cancer screening: Code(s): Z12.11 - Encounter for screening for malignant neoplasm of colon Plan Patient is a 52-year-old female came in today for physical exam Last time she was seen was in 2021 Patient have psychiatric illness with hallucinations auditory, she is on psychiatric medications through Psychiatry Only medication through this office are Omeprazole 20 mg once a day Albuterol inhaler only as needed And nystatin powder for tenia corporis that is usually happens in summer Labs were done February of last year, reviewed Patient agree to have colonoscopy, referral placed Due for mammogram, [facility] Patient recently had right shoulder rotator cuff surgery by Dr. Sanchez Her shoulder is still in sling BMI is elevated need to lose weight Patient also smoke marijuana every day Orders: Orders MM tomosynthesis screening BI Today Z12.31 - Encounter for screening mammogram for malignant neoplasm of breast Referrals Gastroenterology Referral Z12.11 - Encounter for screening for malignant neoplasm of colon Medications: New omeprazole 20 mg PO DAILY 90 caps 1RF Changed From Ventolin HFA 90 mcg/actuation (albuterol sulfate) 1 puff inhalation QID PRN 8 grams 0RF shortness of breath or wheezing NS To Ventolin HFA 90 mcg/actuation (albuterol sulfate) 1 puff inhalation QID PRN 18 grams 2RF shortness of breath or wheezing 30 days NS Refilled nystatin 1 appl topical DAILY 60 grams 2RF 30 days B35.4 - Tinea corporis Coding Level of Care Code Est Pt Prev Care 40-64y(51051) Diagnoses Encounter for general adult medical examination with abnormal findings Z00.01 Major depressive disorder, severe F32.2 Marijuana dependence F12.20 Severe anxiety F41.9 Auditory hallucinations R44.0 Mild intermittent asthma without complication J45.20 Asthma severity: mild Asthma complication type: uncomplicated Class 1 obesity due to excess calories without serious comorbidity with body mass index (BMI) of 34.0 to 34.9 in adult E66.09; Z68.34 Obesity classification: adult class 1 (BMI 30 - 34.9) Serious obesity comorbidity presence: without serious comorbidity Body mass index: BMI 34.0-34.9 Tinea corporis B35.4 Chronic GERD K21.9 Colon cancer screening Z12.11 Additional Codes FREEMAN-7 Assessment Billing - FREEMAN-7 Assessment Tool: FREEMAN-7 Assessment 63834 ([id number])
[2023-07-20 08:53] VITALS: BP 124/80; PULSE 89; O2SAT 95; BMI 34.2
== END 2023-07-20 09:19 | disposition home or self-care (01) ==
PROVIDERS: PCP Internal Medicine; Visit Provider Internal Medicine
DX: Z00.00 Encounter for general adult medical examination without abnormal findings (principal); F32.2 Major depressive disorder, single episode, severe without psychotic features; F12.20 Cannabis dependence, uncomplicated; E66.09 Other obesity due to excess calories; Z68.34 Body mass index [BMI] 34.0-34.9, adult; F41.9 Anxiety disorder, unspecified; R44.0 Auditory hallucinations; J45.20 Mild intermittent asthma, uncomplicated; B35.4 Tinea corporis; K21.9 Gastro-esophageal reflux disease without esophagitis; Z12.11 Encounter for screening for malignant neoplasm of colon; F17.210 Nicotine dependence, cigarettes, uncomplicated
CPT/HCPCS: 99396

== ENCOUNTER 2023-08-09 13:08 | Outpatient (AMB) | payer OTHER, SELFPAY ==
--- NOTE | 2023-08-09 13:10 | A.OFFVIS_ITS ---
Intake Intake Visit Reasons: PO-Rt RTC Repair 07/06/23 NE Intake Note: Kirstie is a 52 year old 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 female who presents today for a post op appointment s/p right RTC repair 07/06/23 NE. Patient reports she is doing better since the surgery. She states that PT is going well, she states that she is very stiff. Allergies amoxicillin [From Augmentin] Allergy (Unknown, Verified 08/09/23 13:12) Rash clavulanic acid [From Augmentin] Allergy (Unknown, Verified 08/09/23 13:12) Rash codeine [CODEINE] Allergy (Unknown, Verified 08/09/23 13:12) Vomiting erythromycin base Allergy (Unknown, Verified 08/09/23 13:12) Unknown Codeine Phosphate Allergy (Unknown, Uncoded 04/19/23 12:08) unknown Codeine Sulfate Allergy (Unknown, Uncoded 04/19/23 12:08) unknown HPI PO-Rt RTC Repair 07/06/23 NE HPI Details 52-year-old 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 female isabelle gonzalez presents in the office today 5 weeks status post right shoulder rotator cuff repair with SAD and bicep tenotomy, which was performed on 07/05/[address] Sanchez. I last saw the patient in the office on 07/12/2023 when she was instructed to remain in the sling and she was referred to work with physical therapy. While in the office today the patient reports she is doing better since the surgery. She has been attending physical therapy and states it is going well. She does reports that she is very stiff. 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 Lacking about 10 degrees of forward flexion and abduction. Able to reach T12. External rotation to 30 degrees. NVI. Assessment & Plan Assessment & Plan (1) S/P right rotator cuff repair: Onset Date: ~07/05/23 Comment: with SAD and bicep tenotomy NE Code(s): Z98.890 - Other specified postprocedural states Plan Ms. Rodriguez is a 52-year-old 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 female who presents in the office today 5 weeks status post right shoulder rotator cuff repair with SAD and bicep tenotomy, which was performed on 07/05/[address] Sanchez. I last saw the patient in the office on 07/12/2023 when she was instructed to remain in the sling and she was referred to work with physical therapy. While in the office today the patient reports she is doing better since the surgery. She has been attending physical therapy and states it is going well. She does reports that she is very stiff. The patient was instructed she is able to discontinue the use of the sling at this time. She will continue to work with physical therapy. Follow up will be in [address] Sanchez, or sooner if needed. Current pain regiment: --Acetaminophen 650 mg PO Q6H PRN (07/05/2023) Patient Instructions: Scribed by Rhonda Gomez medical services assistant, for Brigette Og PA-C on 08/09/2023 at 1:11 pm, EST. Coding Level of Care Code Global (07612) Diagnoses S/P right rotator cuff repair Z98.890
== END 2023-08-09 13:20 | disposition home or self-care (01) ==
PROVIDERS: PCP Internal Medicine; Visit Provider Physician Assistant
DX: Z98.890 Other specified postprocedural states (principal)
CPT/HCPCS: 99024

== ENCOUNTER → 2023-08-09 13:08 | Outpatient (BNVA) | payer OTHER, SELFPAY | PROVIDERS: PCP Internal Medicine; Visit Provider Physician Assistant | DX: Z47.89 Encounter for other orthopedic aftercare (principal); Z98.890 Other specified postprocedural states | CPT/HCPCS: 99212 ==

== ENCOUNTER 2023-09-16 10:33 | Outpatient (AMB) | payer OTHER, SELFPAY ==
--- NOTE | 2023-09-16 10:38 | MHC.OFFVIS ---
Intake Vital Signs 09/16/23 10:40 Height 5 ft 1 in Weight 170 lb BMI 32.1 Handedness Right Intake Visit Reasons: PO-Rt RTC Repair 07/06/23 NE Intake Note: Kirstie is a 52 year old 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 female who presents today for a post op appointment s/p right RTC repair with SAD and bicep tenotomy 07/06/23 NE. Patient reports she is having mild pain and has a clicking sensation in her right shoulder. She is no longer wearing her sling. Allergies amoxicillin [From Augmentin] Allergy (Unknown, Verified 09/16/23 10:41) Rash clavulanic acid [From Augmentin] Allergy (Unknown, Verified 09/16/23 10:41) Rash codeine [CODEINE] Allergy (Unknown, Verified 09/16/23 10:41) Vomiting erythromycin base Allergy (Unknown, Verified 09/16/23 10:41) Unknown Codeine Phosphate Allergy (Unknown, Uncoded 04/19/23 12:08) unknown Codeine Sulfate Allergy (Unknown, Uncoded 04/19/23 12:08) unknown HPI PO-Rt RTC Repair 07/06/23 NE HPI Details Kirstie is a 52 year old 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 female who presents today for a post op appointment s/p right RTC repair with SAD and bicep tenotomy 07/06/23 NE. Patient reports she is having mild pain and has a clicking sensation in her right shoulder. She is no longer wearing her sling. 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 continue HEP. discussed time frame for recovery. f/u 3 months. Plan Follow up with me in 3 months Coding Level of Care Code Global (31408) Diagnoses S/P right rotator cuff repair Z98.890
[2023-09-16 10:40] VITALS: BMI 32.1
== END 2023-09-16 11:05 | disposition home or self-care (01) ==
PROVIDERS: PCP Internal Medicine; Visit Provider Orthopaedic Surgery
DX: Z98.890 Other specified postprocedural states (principal)
CPT/HCPCS: 99024

== ENCOUNTER → 2023-09-16 10:33 | Outpatient (BNVA) | payer OTHER, SELFPAY | PROVIDERS: PCP Internal Medicine; Visit Provider Orthopaedic Surgery | DX: Z98.890 Other specified postprocedural states (principal) | CPT/HCPCS: 99212 ==

== ENCOUNTER 2023-09-28 08:30 | Outpatient (AMB) | payer OTHER, SELFPAY ==
--- NOTE | 2023-09-28 08:33 | MHC.OFFVIS ---
Vital Signs 09/28/23 08:35 Height 5 ft 1 in Weight 189 lb 9.561 oz BMI 35.8 BP 119/79 Blood Pressure Location Lt brachial Position Sitting Pulse 94 Intake Visit Reasons: Colonoscopy Screening Intake Note: Kirstie presents in the office as a colonoscopy screening. CC: She states she is not having any concerns other than GERD. 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 female with past medical history of anxiety, depression, marijuana dependence, rotator cuff tear, chronic hepatitis-C, asthma, on methadone is here today for pre colonoscopy screening.? Patient was sent to us by her PCP.? This is her first colonoscopy screening.? ? Denies any personal or family history of gastrointestinal disease, colon polyps, or cancer.? Denies history of difficulty with sedation or anesthesia in the past.? Negative for history of sleep apnea.? Denies any history of cardiac, renal, pulmonary, or hepatic disease.?? No history of infectious? diseases like hepatitis A, B, HIV or tuberculosis.? Patient is not on any anticoagulation therapy. History of hep C treated in 2019. Patient would like to see if the treatment was successful. States that she has not followed up after the treatment for labs or ultrasound. Chronic acid reflux patient currently is taking omeprazole daily and states that her symptoms are suppressed for the most part. 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 Cognitive needs: No Hearing needs: No Vision needs: Yes Review of Systems Const Denies weight gain and Denies weight loss ENT Reports no additional complaints, Denies dysphagia and Denies odynophagia Card Reports no additional complaints Resp Reports no additional complaints GI Denies abdominal pain, Denies belching, Denies melena, Denies bloating, Denies change in bowel habits, Denies dysphagia, Denies excessive flatus, Denies dyspepsia, Denies heartburn, Denies diarrhea, Denies loose stools, Denies nausea, Denies odynophagia and Denies vomiting Musc Reports no additional complaints Neuro Reports no additional complaints Psych Reports no additional complaints Endo Reports no additional complaints Physical Exam Vital Signs: Last Vital Signs Pulse 94 09/28/23 08:35 BP 119/79 09/28/23 08:35 BMI result Body Mass Index 35.8 Const General: healthy appearing, no acute distress and well developed Nutritional Appearance: well nourished Orientation/consciousness: patient oriented x3 Resp Effort & Inspection: normal respiratory effort, able to speak in complete sentences, no tracheal deviation and symmetric chest movement Auscultation: clear to auscultation bilaterally Cardio Rate: regular rate GI Inspection: Yes normal to inspection and No distended Palpation (GI): Soft to palpation, not firm, nontender and No hepatosplenomegaly present Auscultation: normal bowel sounds General: Yes no CVA tenderness Back/Spine/Pelvis Back: no CVA tenderness Skin General skin exam: elasticity normal, turgor normal and dry skin Neuro General: patient oriented x3 Psych Appearance: grossly normal Mental Status: mental status grossly normal Assessment & Plan Assessment & Plan (1) Colon cancer screening: Code(s): Z12.11 - Encounter for screening for malignant neoplasm of colon Category: Medical (2) Chronic hepatitis C: Comment: Tx start date 11/05/2019, Initial viral load 1,400,000 genotype 1 B, hepatitis-B is negative there is no hepatitis a immune, autoimmune workup shows a very elevated AFP mildly elevated SMA and negative mitochondrial antibodies, HIV screen is negative fibrosis scoring is F3-F4 Ultrasound of the abdomen 09/2019 ULTRASOUND OF THE ABDOMEN 10/2019 IMPRESSION: 1. Increased hepatic parenchymal echogenicity consistent with hepatic steatosis. No focal parenchymal lesion. Liver elastography measurements are consistent with a high risk for clinically significant liver fibrosis (METAVIR Stage F3-F4). 2. No cholelithiasis or ductal dilatation Code(s): B18.2 - Chronic viral hepatitis C Category: Medical (3) Chronic GERD: Code(s): K21.9 - Gastro-esophageal reflux disease without esophagitis Category: Medical Plan Patient denies any cardiac or respiratory symptoms. ?Denies any issues with anesthesia in the past.? Denies any history of sleep apnea.? History of hepatitis C, treated in 2019. Patient never followed up after treatment for re-evaluation and labs. Will send her to check hep C viral load, hepatitis-B surface antibody and hepatitis a IgG to see if she received vaccine in the past.? Not on any anticoagulation therapy.? Patient reports to be on PPI for very long time. History of chronic GERD. Occasionally patient will continue to have acid reflux. She continues to smoke cigarettes less than she used to. Patient will be sent for upper endoscopy to rule out gastritis, esophagitis, Whitlock's. No family or personal history of colon cancer or polyps.? Patient denies melena, hematochezia, unintentional weight loss or ribbon like stools.? Discussed at length the pre-procedure,? prep, diet & medications as well as what to expect prior, during and after the procedure.?? Stressed the importance of good bowel prep. ?Recommended the use of Vaseline or Calmoseptine OTC & baby wipes with bowel movements to promote comfort.? ?Patient verbalizes understanding and agrees to plan of care.? She was given the opportunity to ask questions and all questions answered.? We will see her after the procedure.? Orders: Orders Hepatitis C Viral Load Today Z86.19 - Personal history of other infectious and parasitic diseases Hepatitis B Surface Antibody Today B18.2 - Chronic viral hepatitis C Hepatitis A IgG Today B18.2 - Chronic viral hepatitis C US abdomen comp w elastography Today R79.89 - Other specified abnormal findings of blood chemistry Liver Panel Today R74.01 - Elevation of levels of liver transaminase levels Medications: New bisacodyl (Dulcolax (bisacodyl)) take 4 tabs at noon the day before your colonoscopy 20 mg (4 x 5 mg) PO ONCE 1 day 4 tabs 0RF Z12.11 - Encounter for screening for malignant neoplasm of colon magnesium citrate Drink one bottle at 17:00 and 2nd bottle at 22:00 296 mL PO ONCE 296 mL 1RF Z12.11 - Encounter for screening for malignant neoplasm of colon Coding Level of Care Code New Pt Level 4 (23242) Diagnoses Colon cancer screening Z12.11 Chronic hepatitis C B18.2 Chronic GERD K21.9 Time Spent (min) 45 Comment 30 minutes spent with patient and additional 15 minutes spent reviewing her records
[2023-09-28 08:35] VITALS: BP 119/79; PULSE 94; BMI 35.8
== END 2023-09-28 09:51 | disposition home or self-care (01) ==
PROVIDERS: PCP Internal Medicine; Visit Provider Nurse Practitioner Family
DX: Z12.11 Encounter for screening for malignant neoplasm of colon (principal); B18.2 Chronic viral hepatitis C; K21.9 Gastro-esophageal reflux disease without esophagitis; Z01.818 Encounter for other preprocedural examination
CPT/HCPCS: 99204

== ENCOUNTER → 2023-09-28 08:30 | Outpatient (BNVA) | payer OTHER, SELFPAY | PROVIDERS: PCP Internal Medicine; Visit Provider Nurse Practitioner Family | DX: Z12.11 Encounter for screening for malignant neoplasm of colon (principal); K21.9 Gastro-esophageal reflux disease without esophagitis; B18.2 Chronic viral hepatitis C | CPT/HCPCS: 99202 ==

== ENCOUNTER → 2023-11-02 09:15 | Outpatient (BNV) | payer OTHER, SELFPAY | PROVIDERS: PCP Internal Medicine; Visit Provider Radiology Diagnostic Radiology | DX: Z12.31 Encounter for screening mammogram for malignant neoplasm of breast (principal) | CPT/HCPCS: 77063; 77067 ==

== ENCOUNTER 2023-11-02 09:27 | Outpatient (REF) | payer OTHER, SELFPAY ==
--- NOTE | ~2023-11-02 | MM_ITS ---
EXAMINATION: MM SCREENING DIGITAL BREAST TOMOSYNTHESIS, BILATERAL CLINICAL INFORMATION: Screening. Asymptomatic. Patient is status post left breast benign excision. COMPARISON: Mammography: This study is compared with prior exams dating back to 2013. TECHNIQUE: Digital breast tomosynthesis is performed in both the craniocaudal and mediolateral oblique views along with computer-aided detection (CAD). Synthesized 2D images are generated from the tomosynthesis. FINDINGS: There are scattered areas of fibroglandular density (ACR BI-RADS breast composition Category b). There are no significant masses, abnormal calcifications, or other abnormalities. Benign calcifications and postsurgical changes are present in the left breast. MM/MM tomosynthesis screening BI IMPRESSION: No mammographic evidence of malignancy. ASSESSMENT: BI-RADS BI-RADS 2 - Benign Findings RECOMMENDATION: Routine annual mammography screening. 1 year F/U This examination should not preclude the clinical evaluation of a suspicious palpable abnormality. This patient's information was entered into a reminder system with a target due date for their next mammogram.
== END 2023-11-02 09:28 | disposition home or self-care (01) ==
LOC: HO.MAMMO 09:27
PROVIDERS: PCP Internal Medicine; Visit Provider Internal Medicine
DX: Z12.31 Encounter for screening mammogram for malignant neoplasm of breast (principal)
CPT/HCPCS: 77063; 77067

== ENCOUNTER 2023-11-18 09:15 | Outpatient (REF) | payer OTHER, SELFPAY ==
--- NOTE | ~2023-11-18 | US_ITS ---
EXAMINATION: US COMPLETE ABDOMEN WITH LIVER ELASTOGRAPHY CLINICAL INFORMATION: Abnormal blood chemistry. COMPARISON: 10/09/2019 TECHNIQUE: Real-time imaging of the abdominal viscera. Noninvasive ultrasound liver fibrosis assessment is performed using Buddy ElastPQ point quantification shear wave elastography (2D-SWE) with a C5-2 MHz transducer. Multiple elastography samples are obtained. FINDINGS: PANCREAS: . The visualized pancreatic head and body are normal in appearance. The remainder of the pancreas is obscured from visualization by the overlying bowel gas. ABDOMINAL AORTA: The proximal, middle, and distal aortic segments are normal in caliber. INFERIOR VENA CAVA: Visualized portions are normal. LIVER: . The liver demonstrates normal size and contour but increased echogenicity. No focal lesion or intrahepatic biliary duct dilatation. The right lobe measures 15.6 cm in length. The left lobe measures 13.6 cm in length. Portal flow is towards the liver (hepatopetal). Shear wave liver elastography median stiffness is 2.17 m/s (reference: normal median stiffness is 1.3 m/s or less). Previously this value was 3.31 cm/s. IQR/median stiffness to assess sampling precision is 0.10 (reference: good quality data set is IQR/median stiffness of 0.15 or less). GALLBLADDER: Gallstones are present with the largest measuring 2.9 cm. No evidence of cholecystitis. COMMON BILE DUCT: Normal in caliber measuring 0.2 cm in diameter. RIGHT KIDNEY: . No hydronephrosis. No renal calculi or focal parenchymal lesions. The kidney measures 8.9 cm in maximum dimension. LEFT KIDNEY: . No hydronephrosis. No renal calculi or focal parenchymal lesions. The kidney measures 9.6 cm in maximum dimension. SPLEEN: Normal. The spleen measures 10.5 cm in maximum dimension. FREE FLUID: None. US/US abdomen comp w elastography IMPRESSION: 1. Hepatic steatosis. 2. Liver elastography: Measurements are consistent with compensated advanced chronic liver disease. When compared with prior exam, there is a statistically significant decrease in liver stiffness (decrease at least 10%). REFERENCE: Society of Radiologists in Ultrasound Liver Stiffness Thresholds (2019): LIVER STIFFNESS THRESHOLDS: *Liver Stiffness equal or less than 1.3 m/s: High probability of being normal. *Liver Stiffness less than 1.7 m/s: In the absence of other known clinical signs, rules out compensated advanced chronic liver disease. *Liver Stiffness 1.7-2.1 m/s: Suggestive of compensated advanced chronic liver disease but need further test for confirmation. *Liver Stiffness over 2.1 m/s: Rules in compensated advanced chronic liver disease. *Liver Stiffness over 2.4 m/s: Suggestive of clinically significant portal hypertension. QUALITY OF DATA SET: *IQR/Median value equal or less than 0.15 implies a quality data set. *IQR/Median value over 0.15 implies a poor quality data set. SIGNIFICANT CHANGE FROM PRIOR EXAM: Significant change if liver stiffness measurement is 10% or greater from prior exam. OTHER CONSIDERATIONS: The stage of liver fibrosis may be overestimated in the setting of acute hepatitis, liver inflammation, elevated liver function tests, hepatic vascular congestion, obstructive cholestasis, non-fasting state, and infiltrative diseases such as amyloidosis and lymphoma. In some patients with NAFLD, the liver stiffness thresholds for compensated advanced chronic liver disease may be lower. In causes other than viral hepatitis and NAFLD, liver stiffness thresholds are not well established.
[2023-11-18 11:25] LABS: Alanine Aminotransferase 35 U/L (0-31); Albumin Level 4.4 g/dL (3.5-5.0); Alkaline Phosphatase 79 U/L (39-117); Aspartate Amino Transferase 30 U/L (5-31); Bilirubin Direct 0.2 mg/dL (0.0-0.5); Bilirubin Total 0.4 mg/dL (0.0-1.0); Total Protein 7.6 g/dL (6.5-8.0)
[2023-11-18 11:39] LABS: HBS Num1 4.82 mIU/mL (0-7.99); ~Hepatitis B Surface Antibody NONREACTIVE (Nonreactive)
[2023-11-18 11:40] LABS: Hepatitis A Antibody IgG Nonreactive (Nonreactive); ~Hepatitis A Antibody IgG 0.72 S/CO (0.00-0.99)
[2023-11-20 08:29] LABS: HCV Log PCR <1.18 NOT DETECTED Log IU/mL (NOT DETECTED); HepC Viral Load <15 NOT DETECTED IU/mL (NOT DETECTED)
== END 2023-11-18 09:16 | disposition home or self-care (01) ==
LOC: HO.US 09:15
PROVIDERS: PCP Internal Medicine; Visit Provider Nurse Practitioner Family
DX: R79.89 Other specified abnormal findings of blood chemistry (principal); R74.01 Elevation of levels of liver transaminase levels; B18.2 Chronic viral hepatitis C; Z86.19 Personal history of other infectious and parasitic diseases
CPT/HCPCS: 36415; 76700; 76981; 80076; 86706; 86708; 87522

== ENCOUNTER 2023-11-23 09:00 | Outpatient (RCR) | payer OTHER, SELFPAY ==
--- NOTE | 2023-07-18 09:50 | MHC.PT.EP ---
[facility] [place] Office [place] [facility] [place] Office [address] Heladio Fonseca [address] [phone] F: [phone] F: [phone] F: [phone] F: [phone] Physical Therapy Plan of Care Date of Evaluation: 07/18/23 Date of Surgery: 07/05/2023 Diagnosis: s/p R RTC repair, SAD, biceps tenotomy 07/05/2023 Assessment: Patient is a 52 year old female presenting to PT s/p R RTC repair, SAD, biceps tenotomy 07/05/2023. She presents today with impairments in pain, ROM, strength. 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 Pt expresses assisted goal of returning to PLOF, and is motivated to work towards this in PT. Clinical presentation today is most consistent with signs and sx associated with s/p R RTC repair, SAD, biceps tenotomy 07/05/2023 and pt will benefit from skilled PT 2 week x 20 weeks to address the following problems and impairments noted upon evaluation: pain, ROM, strength. 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 The prescribed treatment plan of care is medically necessary. Co-morbidities of none were identified and taken into considerations of plan of care. Pt was educated on HEP, role of PT, prognosis, POC. Frequency and Duration: The patient will be seen 2 x week x 20 weeks Short Term Goals: Pt will demonstrate compliance with initial HEP in 2 visits. Pt will demonstrate increased R shoulder ER to 45 deg at 45 deg abd in 4 weeks. Pt will demonstrate full PROM in 6 weeks. Snf Goals: Pt will demonstrate full AROM by 12 weeks for improved ability to reach. Pt will demonstrate at least 4-/5 strength in 16 weeks for improved ability to complete ADLs. Pt will demonstrate at least 4/5 strength in 20 weeks for prepare to return to PLOF. Treatment Plan: Modalities to reduce pain, spasms and effusion. Manual therapy to restore motion and function. Therapeutic exercise to improve strength and flexibility. Neuromuscular re-education for posture and balance. Therapeutic activities to return to functional activities of daily living. Electronically signed by: Virginia Hui, PT, DPT, ATC Please sign and return to therapist. Thank you for your referral.
--- NOTE | 2023-11-25 08:30 | MHC.PT.DC ---
[facility] [place] [facility] [place] [facility] [place] [facility] [address] Heladio Fonseca [address] [phone] F: [phone] F: [phone] F: [phone] F: [phone] Physical Therapy Discharge Report Diagnosis: s/p R RTC repair, SAD, biceps tenotomy 07/05/2023 Date of Surgery: 07/05/2023 Date of Evaluation: 07/18/23 Date of Discharge: 11/25/23 Treatments to Date: 27 Cancellations to Date: 10 No Shows to Date: 4 Discharge Status: Discharge Summary: Pt no showed her last PT appointment. Plan was to d/c at this date. Today is also her end date so she will be d/c. Electronically signed by: Virginia Hui, PT, DPT, ATC Please sign and return to therapist. Thank you for your referral.
== END 2023-11-25 08:30 | disposition home or self-care (01) ==
LOC: HO.PTCHIC 09:00
PROVIDERS: PCP Internal Medicine; Visit Provider Physician Assistant
DX: M75.101 Unspecified rotator cuff tear or rupture of right shoulder, not specified as traumatic (principal)
CPT/HCPCS: 97110; 97140; 97161; 97164

== ENCOUNTER 2024-02-03 08:43 | Outpatient (AMB) | payer OTHER, SELFPAY ==
[2024-02-03 08:43] VITALS: BP 118/76; PULSE 88; O2SAT 93; BMI 31.4
--- NOTE | 2024-02-03 08:43 | MHC.PC.OV ---
Vital Signs 02/03/24 08:43 Height 5 ft 1 in Weight 166 lb 6 oz BMI 31.4 BP 118/76 Blood Pressure Location Rt brachial Position Sitting Pulse 88 Pulse Source Pulse Oximeter Pulse Oximetry (%) 93 Oxygen Delivery Method Room Air Intake Visit Reasons: 6 month f/u Allergies amoxicillin [From Augmentin] Allergy (Unknown, Verified 02/03/24 08:43) Rash clavulanic acid [From Augmentin] Allergy (Unknown, Verified 02/03/24 08:43) Rash codeine [CODEINE] Allergy (Unknown, Verified 02/03/24 08:43) Vomiting erythromycin base Allergy (Unknown, Verified 02/03/24 08:43) Unknown Codeine Phosphate Allergy (Unknown, Uncoded 09/28/23 08:36) unknown Codeine Sulfate Allergy (Unknown, Uncoded 09/28/23 08:36) unknown Medication List - Last Reconciled 02/03/24 by Erwin Redmond MD acetaminophen 650 mg (2 x 325 mg) PO Q6H PRN 30 days aripiprazole 5 mg PO DAILY PRN aripiprazole 30 mg PO DAILY baclofen 20 mg PO BID bisacodyl (Dulcolax (bisacodyl)) 20 mg (4 x 5 mg) PO ONCE 1 day bupropion HCl XL 300 mg PO DAILY escitalopram oxalate 20 mg PO DAILY gabapentin 800 mg PO BID hydroxyzine HCl 25 mg PO QID magnesium citrate 296 mL PO ONCE melatonin 5 mg PO BEDTIME methadone 27 mg PO ONCE methocarbamol 500 mg PO TID nystatin 1 appl topical DAILY 30 days omeprazole 20 mg PO DAILY Ventolin HFA 90 mcg/actuation (albuterol sulfate) 1 puff inhalation QID PRN 30 days NS Tobacco use date assessed: 02/03/24 Dental Screening Dental Screen Date: 02/03/24 Did you have a dental visit in the last 12 months?: Yes Did you have a dental problem in the last 6 months where you did not have access to dental care?: No Was dental information given to patient?: Patient has dentist HPI 6 month f/u HPI Details Patient is 53-year-old female This is a follow-up appointment The only medication patient is getting from this office is omeprazole for chronic GERD she is taking it once a day Patient is doing well I would recommend diet-controlled as well Her BMI is elevated need to lose weight Allergic rhinitis stable patient has stop using Flonase. Intermittent asthma stable Tenia corporis stable with nystatin powder groin area She continued to smoke marijuana. Patient have a psychiatric illness and is getting some other medication for that reason through Psychiatry Has physical exam appointment in July [facility] Medical History Anxiety and depression Marijuana use, continuous Asthma, moderate persistent Chronic hepatitis C Family History Other Mental health disorder Substance use disorder Social History Housing: Apartment Alcohol intake: former Year quit: 2006 Patient Tobacco Use Status: Current everyday Tobacco user Tobacco use type: Cigarette Cigarettes Per Day: 3 e-Cigarette/Vaping Use: Never Used Substance Use Type: Other Current occupational status: employed 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 How often do you have a drink containing alcohol?: Never 3. How often do you have six or more drinks on one occasion?: Never Total Score: 0 Score Reviewed/Action Taken: Yes FREEMAN-7 AMB Questionnaire FREEMAN-7 Date FREEMAN - 7 assessed: 07/20/23 Source: Developed by Drs. Hossein Hartmann, Agnieszka Valdez, Drake Nolan and colleagues, with an educational shruthi from [employer]. Review of Systems Const Denies chills and Denies fever(s) ENT Denies epistaxis and Denies nasal discharge Card Denies chest pain Resp Denies chest congestion, Denies cough and Denies hemoptysis GI Denies diarrhea and Denies nausea Skin/Breast Denies rash Neuro Reports no additional complaints Psych Reports no additional complaints Endo Reports no additional complaints Physical exam (Primary Care) Vital Signs: Last Vital Signs Pulse 88 02/03/24 08:43 BP 118/76 02/03/24 08:43 Pulse Ox 93 02/03/24 08:43 Oxygen Delivery Method Room Air 02/03/24 08:43 BMI result Body Mass Index 31.4 Tobacco/Smoking Status: Tobacco use Status Tobacco use date assessed 08/30/24 08/30/24 08:49 Patient Tobacco Use Status Current everyday Tobacco 02/03/24 08:49 Tobacco use type Cigarette 02/03/24 08:49 e-Cigarette/Vaping Use Never Used 02/03/24 08:49 Thrive Assessment: Date of Thrive Assessment Date Thrive assessed 07/20/23 02/03/24 08:49 Const General: cooperative, comfortable and no acute distress Orientation/consciousness: patient oriented x3 HENMT Head: Yes normocephalic Eyes General: appearance normal, both eyes and all related structures Neck Neck: Yes supple Resp Effort & Inspection: normal respiratory effort, no cough and no stridor Cardio Rhythm: regular rhythm Heart sounds: S1 normal heart sound present and S2 normal heart sound present Skin General skin exam: turgor normal Neuro General: patient oriented x3, tone normal and moves all extremities Extrem Right lower extremity: no edema Left lower extremity: no edema Assessment and Plan Assessment & Plan (1) Chronic GERD: Code(s): K21.9 - Gastro-esophageal reflux disease without esophagitis (2) Major depressive disorder, severe: Code(s): F32.2 - Major depressive disorder, single episode, severe without psychotic features (3) Marijuana dependence: Code(s): F12.20 - Cannabis dependence, uncomplicated (4) Severe anxiety: Code(s): F41.9 - Anxiety disorder, unspecified (5) Auditory hallucinations: Code(s): R44.0 - Auditory hallucinations (6) Intermittent asthma: Code(s): J45.20 - Mild intermittent asthma, uncomplicated Qualifiers: Asthma severity: mild Asthma complication type: uncomplicated Qualified Code(s): J45.20 - Mild intermittent asthma, uncomplicated (7) Obesity due to excess calories: Code(s): E66.09 - Other obesity due to excess calories Qualifiers: Obesity classification: adult class 1 (BMI 30 - 34.9) Serious obesity comorbidity presence: without serious comorbidity Body mass index: BMI 34.0-34.9 Qualified Code(s): E66.09 - Other obesity due to excess calories; Z68.34 - Body mass index [BMI] 34.0-34.9, adult (8) Tinea corporis: Code(s): B35.4 - Tinea corporis Plan Patient is 53-year-old female This is a follow-up appointment The only medication patient is getting from this office is omeprazole for chronic GERD she is taking it once a day Patient is doing well I would recommend diet-controlled as well Her BMI is elevated need to lose weight Allergic rhinitis stable patient has stop using Flonase. Intermittent asthma stable Tenia corporis stable with nystatin powder groin area She continued to smoke marijuana. Patient have a psychiatric illness and is getting some other medication for that reason through Psychiatry Continued to have ordered 20 hallucinations, however patient says that she knows that they are not real and she is able to ignore them Has physical exam appointment in July Coding Level of Care Code Est Pt Level 3 (52995) Complex EM visit Add On G2211 Diagnoses Chronic GERD K21.9 Major depressive disorder, severe F32.2 Marijuana dependence F12.20 Severe anxiety F41.9 Auditory hallucinations R44.0 Mild intermittent asthma without complication J45.20 Asthma severity: mild Asthma complication type: uncomplicated Class 1 obesity due to excess calories without serious comorbidity with body mass index (BMI) of 34.0 to 34.9 in adult E66.09; Z68.34 Obesity classification: adult class 1 (BMI 30 - 34.9) Serious obesity comorbidity presence: without serious comorbidity Body mass index: BMI 34.0-34.9 Tinea corporis B35.4
== END 2024-02-03 08:55 | disposition home or self-care (01) ==
PROVIDERS: PCP Internal Medicine; Visit Provider Internal Medicine
DX: K21.9 Gastro-esophageal reflux disease without esophagitis (principal); F32.2 Major depressive disorder, single episode, severe without psychotic features; F12.20 Cannabis dependence, uncomplicated; F41.9 Anxiety disorder, unspecified; R44.0 Auditory hallucinations; J45.20 Mild intermittent asthma, uncomplicated; E66.09 Other obesity due to excess calories; Z68.34 Body mass index [BMI] 34.0-34.9, adult; B35.4 Tinea corporis
CPT/HCPCS: 99213; G2211

== ENCOUNTER 2024-08-07 10:03 | Outpatient (AMB) | payer OTHER, SELFPAY ==
--- NOTE | 2024-08-07 10:05 | MHC.PC.OV ---
Vital Signs 08/07/24 10:12 Height 5 ft 1 in Weight 169 lb 2 oz BMI 32.0 BP 112/58 L Blood Pressure Location Rt brachial Position Sitting Pulse 79 Pulse Source Pulse Oximeter Pulse Oximetry (%) 94 Oxygen Delivery Method Room Air Intake Visit Reasons: follow up Allergies amoxicillin [From Augmentin] Allergy (Unknown, Verified 08/07/24 10:13) Rash clavulanic acid [From Augmentin] Allergy (Unknown, Verified 08/07/24 10:13) Rash codeine [CODEINE] Allergy (Unknown, Verified 08/07/24 10:13) Vomiting erythromycin base Allergy (Unknown, Verified 08/07/24 10:13) Unknown Codeine Phosphate Allergy (Unknown, Uncoded 09/28/23 08:36) unknown Codeine Sulfate Allergy (Unknown, Uncoded 09/28/23 08:36) unknown Medication List - Last Reconciled 08/07/24 by Erwin Redmond MD acetaminophen 650 mg (2 x 325 mg) PO Q6H PRN 30 days aripiprazole 5 mg PO DAILY PRN aripiprazole 30 mg PO DAILY baclofen 20 mg PO BID bisacodyl (Dulcolax (bisacodyl)) 20 mg (4 x 5 mg) PO ONCE 1 day bupropion HCl XL 300 mg PO DAILY escitalopram oxalate 20 mg PO DAILY gabapentin 800 mg PO BID hydroxyzine HCl 25 mg PO QID magnesium citrate 296 mL PO ONCE melatonin 5 mg PO BEDTIME methadone 27 mg PO ONCE methocarbamol 500 mg PO TID nystatin 1 appl topical DAILY 30 days omeprazole 20 mg PO DAILY Ventolin HFA 90 mcg/actuation (albuterol sulfate) 1 puff inhalation QID PRN 30 days NS Tobacco use date assessed: 08/07/24 Dental Screening Dental Screen Date: 08/07/24 Did you have a dental visit in the last 12 months?: No Did you have a dental problem in the last 6 months where you did not have access to dental care?: No Was dental information given to patient?: No HPI follow up HPI Details Physical exam appointment Patient is a 53-year-old female with a psychiatric history established with Psychiatry came in for physical examination [place] medication from this office is omeprazole, Ventolin inhaler which she is using 2 times a week, nystatin cream for chronic groin tinea infection Patient continued to smoke 5 cigarettes a day and 1 cigarette filled with marijuana BMI is elevated at 32.0 need to lose weight - Recent history of a mammogram at [facility] in September/October last year. - Discussed the importance of routine laboratory tests due to ongoing medication use, although these were not ordered by the psychiatrist. [place] [facility] - Seen by a psychiatrist - Ongoing care with [facility] - Regular mammography screening at [facility] Patient Instructions - Proceed to have laboratory tests done as ordered - Continue using the albuterol inhaler as needed for asthma symptoms - Follow up with regular physical examinations and routine screenings as recommended Review of Systems - General: No fever no chills - Neurological: No headaches no dizziness - Ear nose throat: No sore throat no hearing difficulty no ear pain - Cardiovascular: No syncope, no chest pain, no palpitations - Gastrointestinal: No nausea vomiting or diarrhea - Endocrine: No polyuria polydipsia no heat intolerance - Genitourinary: No dysuria - Skin: No new complaints Physical Exam General: Cooperative, healthy appearing, comfortable, no acute distress Orientation: Patient oriented x3 Limitations: Done Head: Normal to inspection Ears: Within normal limit visually Nose: Normal external nose present Face and sinus: Normal facial exam Eyes: Appearance normal, extraocular movement intact pupils reactive Neck: Normal visual inspection and supple Respiratory: Normal respiratory effort and able to speak in complete sentences. Clear to auscultation, no stridor Cardiovascular: S1 and S2 regular in rate and rhythm Breast exam through OBGYN GI: Normal to inspection. Soft to palpation and nontender Skin: Turgor normal, no acute findings. Rash in the groin area is resolved Neuro: Patient oriented x3, motor sensory intact, balance intact, tandem pass Extremities: Normal to inspection Affect flat PFSH Medical History Anxiety and depression Marijuana use, continuous Asthma, moderate persistent Chronic hepatitis C Family History Other Mental health disorder Substance use disorder Social History Housing: Apartment Alcohol intake: former Year quit: 2006 Patient Tobacco Use Status: Current everyday Tobacco user Tobacco use type: Cigarette Cigarettes Per Day: 3 e-Cigarette/Vaping Use: Never Used Substance Use Type: Other Current occupational status: employed 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 1. Little interest or pleasure in doing things: several days 2. Feeling down, depressed, or hopeless: several days 3. Trouble falling or staying asleep, or sleeping too much: several days 4. Feeling tired or having little energy: several days 5. Poor appetite or overeating: several days 6. Feeling bad about yourself - or that you are a failure or have let yourself or your family down: several days 7. Trouble concentrating on things, such as reading the newspaper or watching television: several days 8. Moving or speaking so slowly that other people could have noticed. Or the opposite - being so fidgety or restless that you have been moving around a lot more than usual: several days 9. Thoughts that you would be better off or of hurting yourself in some way: not at all Total score: 8 Depression Screening Interpretation: Negative Depression Screening Done: Yes 60704 - PHQ-9 Billing: Yes Source: Developed by Drs. Hossein Hartmann, Agnieszka Valdez, Drake Nolan and colleagues, with an educational shruthi from [employer]. Thrive Questionnaire Date Thrive assessed: 08/07/24 I am a: Patient What is your living situation today?: I have a place to live, but I am worried about losing it in the future Within the past 12 months, did the food you bought not last and you didn't have the money to get more?: Sometimes True Within the past 12 months, did you worry whether your food would run out before you got money to buy more?: Sometimes True Do you have trouble paying for medicines?: No Do you have trouble getting transportation to medical appointments?: No Do you have trouble paying your heating and electricity bill?: I choose not to answer this question Do you have trouble taking care of your child, family member or friend?: No Do you have trouble with day-to-day activities such as bathing, preparing meals, shopping, managing finances, etc.?: I choose not to answer this question Are you currently unemployed and looking for a job?: Yes Are you interested in more education?: I choose not to answer this question Please select the resources that you would like help with: None THRIVE Score: 3 AUDIT C Alcohol Use Questionnaire (AUDIT-C) 1. How often do you have a drink containing alcohol?: Never 3. How often do you have six or more drinks on one occasion?: Never Total Score: 0 Score Reviewed/Action Taken: Yes FREEMAN-7 AMB Questionnaire FREEMAN-7 Date FREEMAN - 7 assessed: 08/07/24 Feeling nervous, anxious, or on edge: 0 = Not at all Not being able to stop or control worryin = Not at all Worrying too much about different things: 0 = Not at all Trouble relaxin = Not at all Being so restless that it is hard to sit still: 0 = Not at all Becoming easily annoyed or irritable: 0 = Not at all Feeling afraid as if something awful might happen: 0 = Not at all Total FREEMAN-7 score (0-4 normal; 5-9 mild; 10-14 moderate; 15-21 severe): 0 Source: Developed by Drs. Hossein Hartmann, Agnieszka Valdez, Drake Nolan and colleagues, with an educational shruthi from [employer]. FREEMAN-7 Assessment Billing FREEMAN-7 Assessment Tool: FREEMAN-7 Assessment 81980 Physical exam (Primary Care) Vital Signs: Last Vital Signs Pulse 79 08/07/24 10:12 BP 112/58 L 08/07/24 10:12 Pulse Ox 94 08/07/24 10:12 Oxygen Delivery Method Room Air 08/07/24 10:12 BMI result Body Mass Index 32.0 Tobacco/Smoking Status: Tobacco use Status Tobacco use date assessed 08/07/24 08/07/24 10:15 Patient Tobacco Use Status Current everyday Tobacco 08/07/24 10:06 Tobacco use type Cigarette 08/07/24 10:06 e-Cigarette/Vaping Use Never Used 08/07/24 10:06 PHQ-9: PHQ-9 Score PHQ-9: Total score 8 08/07/24 10:15 Depression Screening Interpretation: Negative Thrive Assessment: Date of Thrive Assessment Date Thrive assessed 08/07/24 08/07/24 10:15 Coding Level of Care Code Est Pt Level 3 (24636) Est Pt Prev Care 40-64y(06648) Diagnoses Encounter for general adult medical examination with abnormal findings Z00.01 Severe anxiety F41.9 Auditory hallucinations R44.0 Major depressive disorder, severe F32.2 Marijuana dependence F12.20 Chronic hepatitis C without hepatic coma B18.2 Hepatic coma status: without hepatic coma Moderate persistent asthma without complication J45.40 Asthma complication type: uncomplicated Chronic GERD K21.9 Additional Codes FREEMAN-7 Assessment Billing - FREEMAN-7 Assessment Tool: FREEMAN-7 Assessment 66138 ([id number]) PHQ-9 - 52701 - PHQ-9 Billing: Yes ([id number]) Assessment & Plan Assessment & Plan (1) Encounter for general adult medical examination with abnormal findings: Code(s): Z00.01 - Encounter for general adult medical examination with abnormal findings Category: Medical (2) Severe anxiety: Code(s): F41.9 - Anxiety disorder, unspecified Category: Medical (3) Auditory hallucinations: Code(s): R44.0 - Auditory hallucinations Category: Medical (4) Major depressive disorder, severe: Code(s): F32.2 - Major depressive disorder, single episode, severe without psychotic features Category: Medical (5) Marijuana dependence: Code(s): F12.20 - Cannabis dependence, uncomplicated Category: Medical (6) Chronic hepatitis C: Comment: Tx start date 11/05/2019, Initial viral load 1,400,000 genotype 1 B, hepatitis-B is negative there is no hepatitis a immune, autoimmune workup shows a very elevated AFP mildly elevated SMA and negative mitochondrial antibodies, HIV screen is negative fibrosis scoring is F3-F4 Ultrasound of the abdomen 09/2019 ULTRASOUND OF THE ABDOMEN 10/2019 IMPRESSION: 1. Increased hepatic parenchymal echogenicity consistent with hepatic steatosis. No focal parenchymal lesion. Liver elastography measurements are consistent with a high risk for clinically significant liver fibrosis (METAVIR Stage F3-F4). 2. No cholelithiasis or ductal dilatation Code(s): B18.2 - Chronic viral hepatitis C Category: Medical Qualifiers: Hepatic coma status: without hepatic coma Qualified Code(s): B18.2 - Chronic viral hepatitis C (7) Asthma, moderate persistent: Code(s): J45.40 - Moderate persistent asthma, uncomplicated Category: Medical Qualifiers: Asthma complication type: uncomplicated Qualified Code(s): J45.40 - Moderate persistent asthma, uncomplicated (8) Chronic GERD: Code(s): K21.9 - Gastro-esophageal reflux disease without esophagitis Category: Medical Plan Physical exam appointment Patient is a 53-year-old female with a psychiatric history established with Psychiatry came in for physical examination [place] medication from this office is omeprazole, Ventolin inhaler which she is using 2 times a week, nystatin cream for chronic groin tinea infection Patient continued to smoke 5 cigarettes a day and 1 cigarette filled with marijuana BMI is elevated at 32.0 need to lose weight - Recent history of a mammogram at [facility] in September/October last year. - Discussed the importance of routine laboratory tests due to ongoing medication use, although these were not ordered by the psychiatrist. [place] [facility] - Seen by a psychiatrist - Ongoing care with [facility] - Regular mammography screening at [facility] - Gastroenterology for chronic hepatitis-C infection Patient Instructions - Proceed to have laboratory tests done as ordered - Continue using the albuterol inhaler as needed for asthma symptoms - Follow up with regular physical examinations and routine screenings as recommended Orders: Orders Complete Blood Count Auto Diff Today B18.2 - Chronic viral hepatitis C, F12.20 - Cannabis dependence, uncomplicated, F32.2 - Major depressive disorder, single episode, severe without psychotic features, F41.9 - Anxiety disorder, unspecified, J45.40 - Moderate persistent asthma, uncomplicated, K21.9 - Gastro-esophageal reflux disease without esophagitis, R44.0 - Auditory hallucinations Comprehensive [place]. Panel Fast Today F12.20 - Cannabis dependence, uncomplicated, F32.2 - Major depressive disorder, single episode, severe without psychotic features, F41.9 - Anxiety disorder, unspecified, R44.0 - Auditory hallucinations, Z00.01 - Encounter for general adult medical examination with abnormal findings Lipid Panel Today F12.20 - Cannabis dependence, uncomplicated, F32.2 - Major depressive disorder, single episode, severe without psychotic features, F41.9 - Anxiety disorder, unspecified, R44.0 - Auditory hallucinations, Z00.01 - Encounter for general adult medical examination with abnormal findings TSH reflex Free T4 Today B18.2 - Chronic viral hepatitis C, F12.20 - Cannabis dependence, uncomplicated, F32.2 - Major depressive disorder, single episode, severe without psychotic features, F41.9 - Anxiety disorder, unspecified, J45.40 - Moderate persistent asthma, uncomplicated, K21.9 - Gastro-esophageal reflux disease without esophagitis, R44.0 - Auditory hallucinations Vitamin D 25-OH (D2 and D3) Today F12.20 - Cannabis dependence, uncomplicated, F32.2 - Major depressive disorder, single episode, severe without psychotic features, F41.9 - Anxiety disorder, unspecified, R44.0 - Auditory hallucinations, Z00.01 - Encounter for general adult medical examination with abnormal findings Medications: Refilled Ventolin HFA 90 mcg/actuation (albuterol sulfate) 1 puff inhalation QID PRN 18 grams 6RF shortness of breath or wheezing 30 days NS omeprazole 20 mg PO DAILY 90 caps 3RF nystatin 1 appl topical DAILY 60 grams 2RF 30 days B35.4 - Tinea corporis
[2024-08-07 10:12] VITALS: BP 112/58; PULSE 79; O2SAT 94; BMI 32.0
== END 2024-08-07 11:22 | disposition home or self-care (01) ==
PROVIDERS: PCP Internal Medicine; Visit Provider Internal Medicine
DX: Z00.00 Encounter for general adult medical examination without abnormal findings (principal); F32.2 Major depressive disorder, single episode, severe without psychotic features; F12.20 Cannabis dependence, uncomplicated; B18.2 Chronic viral hepatitis C; F41.9 Anxiety disorder, unspecified; R44.0 Auditory hallucinations; J45.40 Moderate persistent asthma, uncomplicated; K21.9 Gastro-esophageal reflux disease without esophagitis

== ENCOUNTER 2024-08-07 10:03 | Outpatient (REF) | payer OTHER, SELFPAY ==
[2024-08-07 13:23] LABS: MANUAL DIFF FLAG NO
[2024-08-07 13:29] LABS: Basophils Percent Auto 0.4 % (0-2); Eosinophils Absolute Auto 0.1 X10*3/uL (0.0-0.4); Eosinophils Percent Auto 1.8 % (0-4); Hematocrit 41.1 % (37.0-47.0); Hemoglobin 13.3 g/dl (12.0-16.0); Imm Gran Abs Auto 0.02 X10*3/uL (0.00-0.03); Imm Gran Pct Auto 0.3 % (0.0-0.4); Lymphocytes Absolute Auto 2.4 X10*3/uL (1.2-4.9); Lymphocytes Percent Auto 35.5 % (20-40); Mean Corpuscular HGB Conc 32.4 g/dl (31.0-35.0); Mean Corpuscular Hemoglobin 29.8 pg (27.0-33.0); Mean Corpuscular Volume 92.2 fL (80.0-98.0); Mean Platelet Volume 10.4 fL (9.4-12.3); Monocytes Absolute Auto 0.5 X10*3/uL (0.1-1.2); Monocytes Percent Auto 6.6 % (2-11); Neutrophils Absolute Auto 3.8 x10*3/uL (2.0-8.3); Neutrophils Percent Auto 55.4 % (45-73); Platelet Count 188 X10*3/uL (160-400); Red Blood Count 4.46 X10*6/uL (4.20-5.50); Red Cell Distribution Width 13.5 % (11.0-16.0); White Blood Count 6.8 X10*3/uL (4.8-10.8)
[2024-08-07 14:10] LABS: Alanine Aminotransferase 36 U/L (0-31); Albumin Level 3.6 g/dL (3.5-5.0); Alkaline Phosphatase 66 U/L (39-117); Anion Gap 12 (12-20); Aspartate Amino Transferase 43 U/L (5-31); Bilirubin Total 0.4 mg/dL (0.0-1.0); Blood Urea Nitrogen 9 mg/dL (9-16); Calcium 8.5 mg/dL (8.4-10.2); Carbon Dioxide 22 mmol/L (22-29); Chloride 108 mmol/L (96-108); Cholesterol 146 mg/dL (<200); Estimated Glomerular Filt Rate > 60; Glucose Fasting 95 mg/dL (60-99); HDL Cholesterol 61 mg/dL (>40); LDL Cholesterol Calculated 75 mg/dL (<100); Potassium 4.4 mmol/L (3.3-5.1); Sodium 138 mmol/L (135-145); Total Protein 6.8 g/dL (6.5-8.0); Triglycerides 51 mg/dL (<150)
[2024-08-11 14:48] LABS: Vitamin D 25-OH, D2 <4 ng/mL; Vitamin D 25-OH, D3 36 ng/mL; Vitamin D 25-OH, Total 36 ng/mL (30-100)
== END 2024-08-07 10:04 | disposition home or self-care (01) ==
LOC: HO.HMGCLDS 10:03
PROVIDERS: PCP Internal Medicine; Visit Provider Internal Medicine
DX: Z00.01 Encounter for general adult medical examination with abnormal findings (principal); F41.9 Anxiety disorder, unspecified; R44.0 Auditory hallucinations; F32.2 Major depressive disorder, single episode, severe without psychotic features; F12.20 Cannabis dependence, uncomplicated; B18.2 Chronic viral hepatitis C; J45.40 Moderate persistent asthma, uncomplicated; K21.9 Gastro-esophageal reflux disease without esophagitis; F17.210 Nicotine dependence, cigarettes, uncomplicated
CPT/HCPCS: 36415; 80053; 80061; 82306; 84443; 85025; 96127; 99396

== ENCOUNTER 2024-11-08 13:04 | Outpatient (REF) | payer OTHER, SELFPAY ==
--- NOTE | ~2024-11-08 | XR_ITS ---
EXAMINATION: XR FOOT, RIGHT CLINICAL INFORMATION: M79.671 - Pain in right foot COMPARISON: None available. TECHNIQUE: AP, lateral, and oblique views of the right foot. FINDINGS: There is an acute nondisplaced fracture at the base of the fifth metatarsal. No additional fracture, dislocation, or suspicious bone lesion. There is normal bone mineralization. Mild degenerative arthritis in the first MTP joint. Joint spaces otherwise well maintained. There is a normal plantar arch. The midfoot and hindfoot otherwise image normally. There is no soft tissue abnormality XR/XR foot RT min 3V IMPRESSION: 1. Acute nondisplaced fracture base of fifth metatarsal. Electronically signed by: Jose Tadeo MD 11/08/2024 02:07 PM EDT
== END 2024-11-08 13:05 | disposition home or self-care (01) ==
LOC: HO.HMGCX 13:04
PROVIDERS: PCP Internal Medicine; Visit Provider Nurse Practitioner Family
DX: M79.671 Pain in right foot (principal)
CPT/HCPCS: 73630; 99212

== ENCOUNTER 2024-11-08 13:04 | Outpatient (AMB) | payer OTHER, SELFPAY ==
[2024-11-08 13:15] VITALS: BP 118/86; PULSE 92; TEMP 37.1; O2SAT 93; BMI 31.6
--- NOTE | 2024-11-08 13:15 | AM.OFFWIN_ITS ---
Intake Vital Signs 11/08/24 13:15 Height 5 ft 1 in Weight 167 lb 2 oz BMI 31.6 BP 118/86 Blood Pressure Location Lt brachial Position Sitting Pulse 92 Pulse Source Pulse Oximeter Temp 98.7 F Temp Source Oral Pulse Oximetry (%) 93 Oxygen Delivery Method Room Air Intake Visit Reasons: EP Pain on RT foot Intake Note: Pt presents to the office today for c/o pain in her right foot after sitting cross legged and was getting up and rolled her foot. Patient Tobacco Use Status: Current everyday Tobacco user Allergies amoxicillin [From Augmentin] Allergy (Unknown, Verified 11/08/24 13:18) Rash clavulanic acid [From Augmentin] Allergy (Unknown, Verified 11/08/24 13:18) Rash codeine [CODEINE] Allergy (Unknown, Verified 11/08/24 13:18) Vomiting erythromycin base Allergy (Unknown, Verified 11/08/24 13:18) Unknown Codeine Phosphate Allergy (Unknown, Uncoded 11/08/24 13:18) unknown Codeine Sulfate Allergy (Unknown, Uncoded 11/08/24 13:18) unknown HPI HPI Comments History of Present Illness Details 53 y/o Female patient who presents to [facility] walk [facility] clinic with c/o right Foot Pain, after she rolled and twisted her foot 5 days ago. She has been using Ice and wrapping the foot with Trey bandage at home. She has also been taking Advil with minimal relief. She does have some significant edema on both lower extremities - due to previous [place]. 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 Cognitive needs: No Hearing needs: No Vision needs: Yes Review of Systems Const All systems reviewed & are unremarkable except as noted in HPI and below Physical Exam Vital Signs: Last Vital Signs Temp 98.7 F 11/08/24 13:15 Pulse 92 11/08/24 13:15 BP 118/86 11/08/24 13:15 Pulse Ox 93 11/08/24 13:15 Oxygen Delivery Method Room Air 11/08/24 13:15 BMI result Body Mass Index 31.6 Const General: no acute distress Nutritional Appearance: obese Orientation/consciousness: patient oriented x3 Neuro General: patient oriented x3, gait normal (Walks with a limp) and moves all extremities Extrem Right lower extremity: lower leg Details: tenderness (right foot - medial aspect) and pitting edema Details: 2+; no erythema and no crepitus and foot Details: normal capillary refill, tenderness Location: of the plantar foot, of the lateral foot and of the medial foot and toes with normal ROM Left lower extremity: lower leg Details: pitting edema Details: 2+ Psych Speech and movement: Normal speech and movement present Assessment & Plan Assessment & Plan (1) Right foot pain: Code(s): M79.671 - Pain in right foot Plan: Ordered Xray Foot. Rest joint Ice/Hot Acetaminophen for pain relief. Orders: Orders XR foot RT min 3V Today M79.671 - Pain in right foot Coding Level of Care Code Est Pt Level 4 (14078) Diagnoses Right foot pain M79.671 Time Spent (min) 20
== END 2024-11-08 13:48 | disposition home or self-care (01) ==
PROVIDERS: PCP Internal Medicine; Visit Provider Nurse Practitioner Family
DX: M79.671 Pain in right foot (principal)

== ENCOUNTER → 2024-11-08 13:33 | Outpatient (BNV) | payer OTHER, SELFPAY | PROVIDERS: PCP Internal Medicine; Visit Provider Radiology Diagnostic Radiology | DX: S92.354A Nondisplaced fracture of fifth metatarsal bone, right foot, initial encounter for closed fracture (principal) | CPT/HCPCS: 73630 ==

== ENCOUNTER → 2024-11-09 14:00 | Outpatient (BNV) | payer OTHER, SELFPAY | PROVIDERS: PCP Internal Medicine; Visit Provider Internal Medicine | DX: Z12.31 Encounter for screening mammogram for malignant neoplasm of breast (principal) | CPT/HCPCS: 77063; 77067 ==

== ENCOUNTER 2024-11-09 14:21 | Outpatient (REF) | payer OTHER, SELFPAY | END 2024-11-09 14:22 | disposition home or self-care (01) | LOC: HO.MAMMO 14:21 | PROVIDERS: PCP Internal Medicine; Visit Provider Internal Medicine | DX: Z12.31 Encounter for screening mammogram for malignant neoplasm of breast (principal) | CPT/HCPCS: 77063; 77067 ==

== ENCOUNTER 2025-02-16 15:01 | Emergency (ER) | payer OTHER, SELFPAY ==
[2025-02-16 15:11] VITALS: BP 124/76; PULSE 80; RESP 18; TEMP 36.2; O2SAT 93; BMI 30.4
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
--- NOTE | 2025-02-16 15:12 | ECG_ITS ---
Test Reason : SHOULDER PAIN Blood Pressure : */* mmHG Vent. Rate : 62 BPM Atrial Rate : 62 BPM P-R Int : 150 ms QRS Dur : 86 ms QT Int : 440 ms P-R-T Axes : 54 9 29 degrees QTcB Int : 446 ms Normal sinus rhythm Normal ECG When compared with ECG of 25-Jan-2020 23:04, QT has shortened Referred By: Edith Jacobsen Electronically Signed By: KIRAN FINN MD
[2025-02-16 15:34] LABS: MANUAL DIFF FLAG NO
[2025-02-16 15:35] LABS: Hematocrit 41.9 % (37.0-47.0); Hemoglobin 13.8 g/dl (12.0-16.0); Imm Gran Abs Auto 0.02 X10*3/uL (0.00-0.03); Imm Gran Pct Auto 0.3 % (0.0-0.4); Lymphocytes Absolute Auto 2.5 X10*3/uL (1.2-4.9); Mean Corpuscular HGB Conc 32.9 g/dl (31.0-35.0); Mean Corpuscular Hemoglobin 28.9 pg (27.0-33.0); Mean Corpuscular Volume 87.8 fL (80.0-98.0); NRBC Abs Auto 0.000 X10*3/uL (0.0-0.012); NRBC Pct Auto 0.0 /100WBC (0.0-0.2); Platelet Count 201 X10*3/uL (160-400); Red Blood Count 4.77 X10*6/uL (4.20-5.50); White Blood Count 6.6 X10*3/uL (4.8-10.8)
[2025-02-16 15:49] LABS: Alanine Aminotransferase 28 U/L (0-31); Albumin Level 3.9 g/dL (3.5-5.0); Alkaline Phosphatase 90 U/L (39-117); Anion Gap 15 (12-20); Aspartate Amino Transferase 34 U/L (5-31); Blood Urea Nitrogen 11 mg/dL (9-16); Calcium 8.7 mg/dL (8.4-10.2); Carbon Dioxide 21 mmol/L (22-29); Chloride 106 mmol/L (96-108); Creatinine Clr Calc Pharmacy 80.2; Estimated Glomerular Filt Rate > 60; Potassium 4.1 mmol/L (3.3-5.1); Sodium 138 mmol/L (135-145); Total Protein 6.9 g/dL (6.5-8.0)
[2025-02-16 16:09] LABS: Troponin-I High Sensitivity < 2.7 ng/L (<3.5-17.0)
[2025-02-16 16:48] VITALS: BP 120/76; PULSE 64; RESP 16; TEMP 36.3; O2SAT 97
[2025-02-16 18:07] VITALS: BP 105/81; PULSE 63; RESP 18; O2SAT 98
[2025-02-16] MEDS: Lidocaine 4 % Patch ADH..PATCH 1 PATCH TRANSDERMA (19:49)
[2025-02-16 19:53] VITALS: BP 105/81; PULSE 63; RESP 18; TEMP 36.6; O2SAT 98
== END 2025-02-16 19:53 | disposition home or self-care (01) ==
PROVIDERS: Physician Assistant Medical; Emergency Provider Emergency Medicine Emergency Medical Services; PCP Internal Medicine
DX: S39.012A Strain of muscle, fascia and tendon of lower back, initial encounter (principal); V43.52XA Car driver injured in collision with other type car in traffic accident, initial encounter; Y93.9 Activity, unspecified; Y92.9 Unspecified place or not applicable; Y99.9 Unspecified external cause status; M25.512 Pain in left shoulder
CPT/HCPCS: 36415; 80053; 84484; 85025; 93005; 99284

== ENCOUNTER → 2025-02-16 15:12 | Outpatient (BNV) | payer OTHER, SELFPAY | PROVIDERS: Emergency Provider Emergency Medicine Emergency Medical Services; PCP Internal Medicine; Visit Provider Internal Medicine Cardiovascular Disease | DX: M25.512 Pain in left shoulder (principal) | CPT/HCPCS: 93010 ==

== ENCOUNTER 2025-03-01 15:40 | Outpatient (AMB) | payer OTHER, SELFPAY ==
[2025-03-01 15:44] VITALS: BP 120/78; PULSE 105; TEMP 36.8; O2SAT 96; BMI 31.2
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
== END 2025-03-01 16:21 | disposition home or self-care (01) ==
PROVIDERS: PCP Internal Medicine; Visit Provider Physician Assistant
DX: M54.2 Cervicalgia (principal); M54.50 Low back pain, unspecified

== ENCOUNTER 2025-03-29 16:19 | Outpatient (AMB) | payer OTHER, SELFPAY ==
[2025-03-29 16:19] VITALS: BP 130/90; PULSE 108; TEMP 36.9; O2SAT 98; BMI 30.6
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
== END 2025-03-29 16:47 | disposition home or self-care (01) ==
PROVIDERS: PCP Internal Medicine; Visit Provider Physician Assistant
DX: S16.1XXD Strain of muscle, fascia and tendon at neck level, subsequent encounter (principal); M54.50 Low back pain, unspecified